=== PATIENT | female | born 1985 | race Caucasian/White ===

== ENCOUNTER → 2019-01-21 | Outpatient (CLI) | payer MEDICAID ==
[~2019-01-21] MED LIST: DIPH1TAB45 PO; ONDAN4ODT PO; PNT40TEC PO; SULF1TAB38 PO
--- NOTE | 2019-01-21 12:51 | Diagnostic Imaging Report ---
Indication: Left foot pain. Comparison: None available. Technique: 3 nonweightbearing views of the left foot were obtained. Findings: Normal osseous mineralization. No fracture or erosion. Joint spaces are well preserved. No plantar calcaneal spur. Tiny dorsal calcaneal spur. Os trigonum is present. No osseous tarsal coalition. Impression: Tiny dorsal calcaneal spur. Dictated by: Dictated on workstation # [id number]
--- NOTE | 2019-01-21 12:51 | Diagnostic Imaging Report ---
INDICATION: Left hip pain. COMPARISON: None available. TECHNIQUE: AP and frog-leg lateral views of the left hip. FINDINGS: No acute fracture or malalignment. Normal femoral head-neck offset. Potential mild acetabular retroversion which can be seen with pincer-type femoroacetabular impingement. Femoral head remains spherical without features of osteonecrosis by radiography. An IUD is present in the pelvis. IMPRESSION: 1. No acute osseous abnormality of the left hip. 2. 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 Dictated by: Dictated on workstation # [id number]
== END ==
LOC: RAD FS 12:08
PROVIDERS: ATTEND Nurse Practitioner Family
DX: M25.552 Pain in left hip (principal); M79.672 Pain in left foot; Z97.5 Presence of (intrauterine) contraceptive device
CPT/HCPCS: 73502; 73630

== ENCOUNTER 2019-05-08 17:39 | Emergency (ER) | payer MEDICAID | END 2019-05-08 20:10 | disposition home or self-care (01) | LOC: ER FS 17:39 ==

== ENCOUNTER 2019-06-15 17:04 | Emergency (ER) | payer MEDICAID ==
[~2019-06-15] VITALS: Ht 162.6 cm; Wt 86.2 kg
[~2019-06-15 17:04] MED LIST changes: +LEVO100T7
--- NOTE | 2019-06-15 17:24 | ED Fall/Injury ---
General Stated Complaint: RT ARM PAIN - FALL Source: patient Exam Limitations: no limitations History of Present Illness Date Seen by Provider: Jun 15, 2019 Time Seen by Provider: 17:08 Initial Comments The patient presents to ER by private conveyance from home with chief complaint that she fell down a couple stairs onto her bottom and slid forward bracing herself with both of her arms against the stairs last night. She did not strike her head lose consciousness have any nausea or headache. She is just having some pain and swelling in her right forearm on the ulnar side mid shaft. She has full range of motion of her hands and elbow. She is having a little burning pain in her right pinky. Allergies and Home Medications Allergies Coded Allergies: Acetaminophen (Verified Allergy, 08/05/11) oxycodone HCl (Verified Allergy, 08/05/11) Patient Home Medication List Home Medication List Reviewed: Yes Review of Systems Review of Systems Constitutional: No chills, No diaphoresis Eyes: Denies Blindness, Denies Blurred Vision Ears, Nose, Mouth, Throat: denies ear pain, denies ear discharge Respiratory: No cough, No short of breath Cardiovascular: No chest pain, No edema Past Kldhrkp-Fnwjtc-Wicflx Hx Patient Social History Alcohol Use: Occasionally Uses Recreational Drug Use: No Smoking Status: Current Everyday Smoker Type Used: Cigarettes Recent Hopitalizations: No Immunizations Up To Date Date of Influenza Vaccine: Aug 22, 2011 Past Medical History Surgeries: Yes Adenoidectomy Respiratory: No Cardiac: No Neurological: No Genitourinary: No Gastrointestinal: No Musculoskeletal: No Endocrine: Yes Hypothyroidsim HEENT: No Cancer: No Psychosocial: No Integumentary: No Physical Exam Vital Signs Vital Signs - First Documented 06/15/19 17:32 Temp 98.2 Pulse 78 Resp 16 B/P (MAP) 135/82 (99) Pulse Ox 99 Capillary Refill : Height, Weight, BMI Height: 5'4.00" Weight: 180lbs. oz. 81.170210dw; BMI Method:Stated General Appearance: WD/WN, no apparent distress HEENT: PERRL/EOMI, pharynx normal, other (atraumatic head) Neck: full range of motion, normal inspection Cardiovascular: normal peripheral pulses, no edema Respiratory: no respiratory distress, no accessory muscle use Peripheral Pulses: 2+ Radial Pulses (R) (ulnar pulse palpable and symmetric with radial), 2+ Radial Pulses (L) Extremities: normal range of motion, normal capillary refill, other (ulnar side of her right forearm mid shaft has a modest size 4-5 cm long hematoma without obvious deformity. She has full range of motion pronation and supination.) Neurologic/Psychiatric: no motor/sensory deficits, alert, normal mood/affect Progress/Results/Core Measures Results/Orders My Orders Orders - NEDA AUSTIN Forearm 2 View Right (06/15/19 17:15) Vital Signs/I&O 06/15/19 17:32 Temp 98.2 Pulse 78 Resp 16 B/P (MAP) 135/82 (99) Pulse Ox 99 Progress Progress Note : Time: 17:21 Progress Note I suspect she is either struck her ulnar nerve at the level of the hematoma or the hematoma is causing direct compression of the ulnar nerve and that explains her burning sensation in her pinky. Unlikely there is a fracture however a simple x-ray can rule it out given the hematoma. Conservative care, Tylenol, ibuprofen and ice pack. Diagnostic Imaging Diagonstic Imaging: Xray Plain Films/CT/US/NM/MRI: forearm Comments No acute osseous abnormality. NAME: ABDOUL DOMINGUEZ [facility] REC#: [id number] PT STATUS: REG ER : 1985 PHYSICIAN: NEDA AUSTIN MD ADMIT DATE: 06/15/19/ER FS Draft Date of Exam:06/15/19 FOREARM 2 VIEW RIGHT INDICATION: Fell, elbow pain. EXAMINATION: Right forearm at 5:04 p.m. AP and lateral views were obtained. COMPARISON: There are no prior studies available for comparison. FINDINGS: There is no fracture, dislocation or acute bony abnormality evident. The radiocarpal and elbow joint seem well maintained. The posterior fat-pad at the elbow joint is not elevated. The soft tissues are unremarkable. IMPRESSION: There is no evidence for an acute bony abnormality. Dictated on workstation # [id number] Dict: 06/15/[id number] Trans: 06/15/19 175 [facility] [id number] Interpreted by: OSCAR BOOKER MD Electronically signed by: Reviewed: Reviewed by Me Departure Impression Primary Impression: Fall Qualified Codes: W19.XXXA - Unspecified fall, initial encounter Additional Impression: Traumatic hematoma of right forearm Qualified Codes: S50.11XA - Contusion of right forearm, initial encounter Disposition: 01 HOME, SELF-CARE Condition: Stable Departure-Patient Inst. Decision time for Depature: 17:57 Referrals: [facility] (PCP) Primary Care Physician JOY AGUIRRE APRN (Family) Primary Care Physician Patient Instructions: HEMATOMA Add. Discharge Instructions: For the first 2 or 3 days apply an ice pack directly over the hematoma every 4 hours. 800 mg of Ibuprofen every 8 hours will help decrease the swelling as well as elevation above the level of your heart. Tylenol 1000 mg every 8 hours as needed for breakthrough pain. Sensation to your pinky finger should return as the swelling goes down unless use incidentally injured the nerve in which case usually it will heal within a month or 2. Follow-up with primary care if you have worsening symptoms. NEDA AUSTIN Jun 15, 2019 17:24
--- NOTE | 2019-06-15 17:54 | Diagnostic Imaging Report ---
INDICATION: Fell, elbow pain. EXAMINATION: Right forearm at 5:04 p.m. AP and lateral views were obtained. COMPARISON: There are no prior studies available for comparison. FINDINGS: There is no fracture, dislocation or acute bony abnormality evident. The radiocarpal and elbow joint seem well maintained. The posterior fat-pad at the elbow joint is not elevated. The soft tissues are unremarkable. IMPRESSION: There is no evidence for an acute bony abnormality. Dictated by: Dictated on workstation # [id number]
[2019-06-15 18:00] VITALS: BP 135/82
== END 2019-06-15 18:02 | disposition home or self-care (01) ==
LOC: EDUNIT# 17:04 → ER FS 17:05
DX: S50.11XA Contusion of right forearm, initial encounter (principal); E03.9 Hypothyroidism, unspecified; F17.210 Nicotine dependence, cigarettes, uncomplicated; Z88.5 Allergy status to narcotic agent; W10.9XXA Fall (on) (from) unspecified stairs and steps, initial encounter
CPT/HCPCS: 73090

== ENCOUNTER 2020-05-17 09:13 | Emergency (ER) | payer MEDICAID ==
--- OUTSIDE RECORDS SUMMARY | 2020-05-17 09:38 | XMS REPORT | Continuity of Care Document ---
Author Organization Unknown Address Unknown Phone Unavailable Allergies Active Description Code Type Severity Reaction Onset Reported/Identified Relationship to Patient Clinical Status Yes acetaminophen [id number] Alvaro g Allergy Unknown N/A 08/05/2011 Yes oxycodone HCl [id number] Alvaro g Allergy Unknown N/A 08/05/2011 Medications There is no data. Problems Date Dx Coded Attending Type Code Diagnosis Diagnosed By 05/02/2018 Peter Decker MD N2 0.0 Kidney stone 05/03/2018 Peter Decker MD N2 0.1 Distal ureteral calculus, left 01/22/2019 JOY AGUIRRE S MANAGER NUCLEAR Ot M25.552 PAIN IN LEFT HIP 01/22/2019 TIMOTHY JOY S MANAGER NUCLEAR Ot M79.672 PAIN IN LEFT FOOT 01/22/2019 TIMOTHY JOY S MANAGER NUCLEAR Ot Z97.5 PRESENCE OF (INTRAUTERINE) CONTRACEPTIVE 01/22/2019 TIMOTHY, JOY S MANAGER NUCLEAR Ot M25.552 PAIN IN LEFT HIP 01/22/2019 TIMOTHY, JOY S MANAGER NUCLEAR Ot M79.672 PAIN IN LEFT FOOT 01/22/2019 TIMOTHY, JOY S MANAGER NUCLEAR Ot Z97.5 PRESENCE OF (INTRAUTERINE) CONTRACEPTIVE 01/23/2019 TIMOTHY JOY S MANAGER NUCLEAR Ot M25.552 PAIN IN LEFT HIP 01/23/2019 TIMOTHY JOY S MANAGER NUCLEAR Ot M79.672 PAIN IN LEFT FOOT 01/23/2019 TIMOTHY JOY S MANAGER NUCLEAR Ot Z97.5 PRESENCE OF (INTRAUTERINE) CONTRACEPTIVE 05/08/2019 TIMOTHY JOY S MANAGER NUCLEAR Ot M25.552 PAIN IN LEFT HIP 05/08/2019 TIMOTHY, JOY S MANAGER NUCLEAR Ot M79.672 PAIN IN LEFT FOOT 05/08/2019 TIMOTHY JOY S MANAGER NUCLEAR Ot Z97.5 PRESENCE OF (INTRAUTERINE) CONTRACEPTIVE 05/14/2019 ITZEL RUSHING DO Ot E03. 9 HYPOTHYROIDISM, UNSPECIFIED 05/14/2019 ITZEL RUSHING DO Ot F17.200 NICOTINE DEPENDENCE, UNSPECIFIED, UNCOMP 05/14/2019 ITZEL RUSHING DO Ot R53. 83 OTHER FATIGUE 05/14/2019 ITZEL RUSHING DO Ot Z88. 5 ALLERGY STATUS TO NARCOTIC AGENT STATUS 06/18/2019 NEDA AUSTIN MD Ot E03. 9 HYPOTHYROIDISM, UNSPECIFIED 06/18/2019 NEDA AUSTIN MD Ot F17.210 NICOTINE DEPENDENCE, CIGARETTES, UNCOMPL 06/18/2019 NEDA AUSTIN MD Ot S50.11XA CONTUSION OF RIGHT FOREARM, INITIAL ENCO 06/18/2019 NEDA AUSTIN MD Ot S59.911A UNSPECIFIED INJURY OF RIGHT FOREARM, INI 06/18/2019 NEDA AUSTIN MD Ot W10.9XXA FALL (ON) (FROM) UNSPECIFIED STAIRS AND 06/18/2019 NEDA AUSTIN MD Ot Z88. 5 ALLERGY STATUS TO NARCOTIC AGENT STATUS Procedures There is no data. Results Test Result Range TSH w/ FREE T4 - 12/19/18 12:30 TSH 2.36 mIU/L NRG T4, FREE 1.1 ng/dL 0.8-1.8 TSH - 01/29/19 15:00 TSH 1.51 mIU/L NRG T4 FREE - 04/02/19 11:07 T4, FREE 1.1 ng/dL 0.8-1.8 TSH - 04/02/19 11:07 TSH 1.12 mIU/L NRG CBC w/MANUAL DIFF - 04/03/19 15:26 WHITE BLOOD CELL COUNT 6.3 Thousand/uL 3 .8-10.8 RED BLOOD CELL COUNT 4.41 Million/uL 3.8 0-5.10 HEMOGLOBIN 12.6 g/dL 11.7-15.5 HEMATOCRIT 38.6 % 35.0-45.0 MCV 87.5 fL 80.0-100.0 MCH 28.6 pg 27.0-33.0 MCHC 32.6 g/dL 32.0-36.0 RDW 15.0 % 11.0-15.0 PLATELET COUNT 252 Thousand/uL 140-400 MPV 10.6 fL 7.5-12.5 ABSOLUTE NEUTROPHILS 5015 cells/uL 1500- 7800 ABSOLUTE MONOCYTES 63 cells/uL 200-950 ABSOLUTE EOSINOPHILS 0 cells/uL 15-500 ABSOLUTE BASOPHILS 63 cells/uL 0-200 NEUTROPHILS 79.6 % NRG LYMPHOCYTES 18.4 % NRG MONOCYTES 1.0 % NRG EOSINOPHILS 0 % NRG BASOPHILS 1.0 % NRG ABSOLUTE LYMPHOCYTES 1159 cells/uL 850-3 900 PLATELET ESTIMATION ADEQUATE ADEQUATE COMMENT(S) NRG Complete blood count (CBC) with automate d white blood cell (WBC) differential - 05/08/19 18:19 Blood leukocytes automated count (number/volume) 8.4 10*3/uL 4.3-11.0 Blood erythrocytes automated count (number/volume) 4.21 10*6/uL 4.35-5.85 Venous blood hemoglobin measurement (mass/volume) 12.2 g/dL 11.5-16.0 Blood hematocrit (volume fraction) 37 % 35-52 Automated erythrocyte mean corpuscular volume 88 [ foz_us] 80-99 Automated erythrocyte mean corpuscular h emoglobin (mass per erythrocyte) 29 pg 25-34 Automated erythrocyte mean corpuscular h emoglobin concentration measurement (mass/volume) 33 g/dL 32-36 Automated erythrocyte distribution width ratio 15. 3 % 10.0- 14.5 Automated blood platelet count (count/volume) 217 10*3/uL 130-400 Automated blood platelet mean volume measurement 10.8 [foz_us] 7.4-10.4 Automated blood neutrophils/100 leukocytes 78 % 42-75 Automated blood lymphocytes/100 leukocytes 14 % 12-44 Blood monocytes/100 leukocytes 7 % 0-12 Automated blood eosinophils/100 leukocytes 1 % 0-10 Automated blood basophils/100 leukocytes 1 % 0-10 Blood neutrophils automated count (number/volume) 6.5 10*3 1.8-7.8 Blood lymphocytes automated count (number/volume) 1.2 10*3 1.0-4.0 Blood monocytes automated count (number/volume) 0. 6 10*3 0.0-1.0 Automated eosinophil count 0.1 10*3/uL 0 .0-0.3 Automated blood basophil count (count/volume) 0.0 10*3/uL 0.0-0.1 Fibrin D-dimer FEU measurement in platel et poor plasma (mass/volume) - 05/08/19 18:19 Fibrin D-dimer FEU measurement in platelet poor plasma (mass/volume) 0.37 ug/mL 0.00-0.49 Comprehensive metabolic panel - 05/08/19 18:19 Serum or plasma sodium measurement (moles/volume) 140 mmol/L 135-145 Serum or plasma potassium measurement (moles/volume) 3.9 mmol/L 3.6-5.0 Serum or plasma chloride measurement (moles/volume) 104 mmol/L 98-107 Carbon dioxide 22 mmol/L 21-32 Serum or plasma anion gap determination (moles/volume) 14 mmol/L 5-14 Serum or plasma urea nitrogen measurement (mass/volume ) 16 mg/dL 7-18 Serum or plasma creatinine measurement (mass/volume) 0.72 mg/dL 0.60-1.30 Serum or plasma urea nitrogen/creatinine mass ratio 22 NRG Serum or plasma creatinine measurement w ith calculation of estimated glomerular filtration rate > NRG Serum or plasma glucose measurement (mass/volume) 104 mg/dL 70-105 Serum or plasma calcium measurement (mass/volume) 9.7 mg/dL 8.5-10.1 Serum or plasma total bilirubin measurement (mass/volu me) 0.2 mg/dL 0.1-1.0 Serum or plasma alkaline phosphatase reggie surement (enzymatic activity/volume) 70 U/L 40-136 Serum or plasma aspartate aminotransfera se measurement (enzymatic activity/volume) 14 U/L 5-34 Serum or plasma alanine aminotransferase measurement (enzymatic activity/volume) 16 U/L 0-55 Serum or plasma protein measurement (mass/volume) 7.1 g/dL 6.4-8.2 Serum or plasma albumin measurement (mass/volume) 4.1 g/dL 3.2-4.5 CALCIUM CORRECTED 9.6 mg/dL 8.5-10.1 Magnesium - 05/08/19 18:19 Magnesium 1.9 mg/dL 1.8-2.4 THYROID STIMULATING HORMONE - 05/08/19 1 8:19 THYROID STIMULATING HORMONE 0.57 u[iU]/mL 0.35-4.94 Serum or plasma thyroxine (T4) free robert urement (mass/volume) - 05/08/19 18:19 Serum or plasma thyroxine (T4) free measurement (mass/ volume) 0.96 ng/dL 0.70-1.48 Urine beta human chorionic gonadotropin (hCG) measurement - 05/08/19 19:04 Urine beta human chorionic gonadotropin (hCG) measurem ent NEGATIVE NEGATIVE Complete urinalysis with reflex to cultu re - 05/08/19 19:04 Urine color determination YELLOW NRG Urine clarity determination CLEAR NR G Urine pH measurement by test strip 7.0 5-9 Specific gravity of urine by test strip 10.15 1.016-1.022 Urine protein assay by test strip, semi-quantitative NEGATIVE NEGATIVE Urine glucose detection by automated test strip NE GATIVE NEGATIVE Erythrocytes detection in urine sediment by light micr oscopy NEGATIVE NEGATIVE Urine ketones detection by automated test strip NE GATIVE NEGATIVE Urine nitrite detection by test strip NEGATIVE NEGATIVE Urine total bilirubin detection by test strip NEGA TIVE NEGATIVE Urine urobilinogen measurement by automated test strip (mass/volume) 0.2 mg/dL NORMAL Urine leukocyte esterase detection by dipstick NEG ATIVE NEGATIVE Automated urine sediment erythrocyte cou nt by microscopy (number/high power field) NONE NRG Automated urine sediment leukocyte count by microscopy (number/high power field) RARE NRG Bacteria detection in urine sediment by light microsco py NEGATIVE NRG Squamous epithelial cells detection in u rine sediment by light microscopy 2-5 NRG Crystals detection in urine sediment by light microsco py PRESENT NRG Casts detection in urine sediment by light microscopy NONE NRG Mucus detection in urine sediment by light microscopy NONE NRG Complete urinalysis with reflex to culture NO NRG Amorphous sediment detection in urine sediment by ligh t microscopy FEW CARLTON PHOSPHATE NRG TSH w/ FREE T4 - 07/03/19 16:25 TSH 1.89 mIU/L NRG T4, FREE 1.0 ng/dL 0.8-1.8 CULTURE, URINE - 08/22/19 17:25 CULTURE, URINE, ROUTINE SEE NOTE NRG CULTURE, URINE - 11/25/19 10:18 CULTURE, URINE, ROUTINE SEE NOTE NRG TSH - 02/20/20 10:28 TSH 1.71 mIU/L NRG T4 FREE - 03/23/20 10:48 T4, FREE 1.0 ng/dL 0.8-1.8 T3 FREE - 03/23/20 10:48 T3, FREE 3.0 pg/mL 2.3-4.2 Encounters ACCT No. Visit Date/Time Discharge Status Pt. Type Provider Facility Loc./Unit Complaint [id number] 05/10/2018 10:48:00 ACT Unknown Peter Decker MD [id number] 11/05/2019 10:56:00 23:59:59 CLS Preadmit JOY AGUIRRE MANAGER NUCLEAR [facility] RAD SWALLOWING IMPAIRED [id number] 06/15/2019 17:05:00 18:02:00 DIS Outpatient NEDA AUSTIN MD [facility] ER FS RT ARM PAIN - FALL [id number] 05/08/2019 17:39:00 20:10:00 DIS Outpatient ITZEL RUSHING DO [facility] ER FS CHEST PAIN, ARMS AND LE GS NUMB, POSS HEAD INJ [id number] 01/21/2019 12:08:00 23:59:59 CLS Outpatient JOY AGUIRRE MANAGER NUCLEAR [facility] RAD FS [id number] 04/05/2020 15:00:00 04/05/2020 23:59: 59 CLS Outpatient JOY AGUIRRE [facility] [id number] 03/23/2020 10:45:00 Document Registration [id number] 02/20/2020 10:30:00 Document Registration [id number] 11/25/2019 09:45:00 Document Registration [id number] 08/22/2019 17:10:00 Document Registration [id number] 07/03/2019 16:00:00 Document Registration [id number] 04/03/2019 15:30:00 Document Registration [id number] 04/02/2019 11:15:00 Document Registration [id number] 01/29/2019 14:00:00 Document Registration [id number] 12/19/2018 12:30:00 Document Registration
[2020-05-17] MEDS ORDERED: KETOROLAC 60 MG/2 ML VIAL IM ONE (09:45)
--- NOTE | 2020-05-17 09:47 | ED Abdominal Pain ---
General Chief Complaint: Abdominal/GI Problems Stated Complaint: ABD PAIN Nursing Triage Note: Started having left sided flank pain and bilateral lower quadrant abdominal pain yesterday. Has worsened overnight. Has a hx of kidney stones Sepsis Screen: No Definite Risk Source of Information: Patient Exam Limitations: No Limitations History of Present Illness Date Seen by Provider: May 17, 2020 Time Seen by Provider: 09:35 Initial Comments Patient resents ER by private conveyance from home with chief complaint that since last night she started expressing some low abdominal pain bilaterally that started radiating to her left flank. She says the pain is consistent with her history of kidney stones. At worst it's an 8 out of 10 in presently to 4 out of 10. It comes and goes and it cramping like sharp colicky fashion. She has not taken anything for the pain today. She has not had any dysuria but she did have some blood in her urine yesterday evening. No diarrhea or constipation. She had a bowel movement earlier today which was normal. No other history of abdominal surgeries or trauma. Allergies and Home Medications Allergies Coded Allergies: Acetaminophen (Verified Allergy, 08/05/11) oxycodone HCl (Verified Allergy, 08/05/11) Patient Home Medication List Home Medication List Reviewed: Yes Review of Systems Review of Systems Constitutional: No chills, No diaphoresis EENTM: No Blurred Vision, No Double Vision Respiratory: Denies Cough, Denies Shortness of Air Cardiovascular: Denies Chest Pain, Denies Lightheadedness Gastrointestinal: See HPI, Abdominal Pain; Denies Constipated, Denies Diarrhea, Denies Nausea Genitourinary: Denies Burning, Denies Discharge Musculoskeletal: see HPI, back pain (left flank); No joint pain Skin: No pruritus, No rash Psychiatric/Neurological: Denies Anxiety, Denies Depressed All Other Systems Reviewed Negative Unless Noted: Yes Past Muygbci-Yxqppl-Bndjqu Hx Patient Social History Alcohol Use: Denies Use Recreational Drug Use: No Type Used: Cigarettes 2nd Hand Smoke Exposure: No Recent Foreign Travel: No Contact w/Someone Who Travel: No Recent Infectious Disease Expo: No Recent Hopitalizations: No Immunizations Up To Date Date of Influenza Vaccine: Aug 22, 2011 Past Medical History Surgeries: Yes Adenoidectomy Respiratory: No Cardiac: No Neurological: No Neuropathy Genitourinary: No Gastrointestinal: No Musculoskeletal: No Endocrine: Yes Hypothyroidsim HEENT: No Cancer: No Psychosocial: No Integumentary: No Physical Exam Vital Signs Vital Signs - First Documented 05/17/20 09:39 Pulse 92 Resp 20 B/P (MAP) 124/80 (95) Pulse Ox 98 Capillary Refill : Less Than 3 Seconds Height/Weight/BMI Height: 5'4.00" Weight: 190lbs. oz. 86.652295cj; BMI Method:Stated General Appearance: WD/WN, mild distress HEENT: PERRL/EOMI, pharynx normal Neck: full range of motion, normal inspection Respiratory: lungs clear, normal breath sounds, no respiratory distress, no accessory muscle use Cardiovascular: normal peripheral pulses, regular rate, rhythm Gastrointestinal: normal bowel sounds, non tender, soft Extremities: normal range of motion, non-tender, normal inspection, normal capillary refill Back: normal inspection, no CVA tenderness, no vertebral tenderness Neurologic/Psychiatric: alert, normal mood/affect Skin: normal color, warm/dry Progress/Results/Core Measures Results/Orders Lab Results Laboratory Tests Test 05/17/20 09:26 Range/Units Urine Color YELLOW Urine Clarity CLEAR Urine pH 5.5 5-9 Urine Specific [place] >1.030 1.016-1.022 Urine Protein NEGATIVE NEGATIVE Urine Glucose (UA) NEGATIVE NEGATIVE Urine Ketones NEGATIVE NEGATIVE Urine Nitrite NEGATIVE NEGATIVE Urine Bilirubin NEGATIVE NEGATIVE Urine Urobilinogen 0.2 < = 1.0 MG/DL Urine Leukocyte Esterase TRACE H NEGATIVE Urine RBC (Auto) NEGATIVE NEGATIVE Urine RBC NONE /HPF Urine WBC 0-2 /HPF Urine Squamous Epithelial Cells 5-10 /HPF Urine Crystals NONE /LPF Urine Bacteria TRACE /HPF Urine Casts NONE /LPF Urine Mucus TRACE /LPF Urine Culture Indicated NO My Orders Orders - NEDA AUSTIN Ua Culture If Indicated (05/17/20 09:15) Urine Bedside (05/17/20 09:15) Ct Abdomen/Pelvis Wo (05/17/20 09:43) Ketorolac Injection (Toradol Injection) (05/17/20 09:45) Medications Given in ED Current Medications Medications Dose Ordered Sig/Olga Route Start Time Stop Time Status Last Admin Dose Admin Ketorolac Tromethamine 60 mg ONCE ONCE IM 05/17/20 09:45 05/17/20 09:46 DC 05/17/20 09:57 60 MG Vital Signs/I&O 05/17/20 09:39 Pulse 92 Resp 20 B/P (MAP) 124/80 (95) Pulse Ox 98 Blood Pressure Mean: 95 Progress Progress Note : Time: 09:45 Progress Note Urine bedside was negative per nursing so we will obtain a CT noncontrast kidney stone protocol and give her a shot of Toradol. Diagnostic Imaging Diagonstic Imaging: CT (noncontrast) Plain Films/CT/US/NM/MRI: abdomen, pelvis Comments NAME: ABDOUL DOMINGUEZ [facility] REC#: [id number] PT STATUS: REG ER : 1985 PHYSICIAN: NEDA AUSTIN MD ADMIT DATE: 05/17/20/ER FS Draft Date of Exam:05/17/20 CT ABDOMEN/PELVIS WO PROCEDURE: CT abdomen and pelvis without contrast. TECHNIQUE: Multiple contiguous axial images were obtained through the abdomen and pelvis without the use of intravenous contrast. Auto Exposure Controls were utilized during the CT exam to meet ALARA standards for radiation dose reduction. INDICATION: Left-sided flank pain. History of nephrolithiasis. COMPARISON: 12/30/2011. FINDINGS: There are stones within upper and lower pole calyces of the left kidney. The largest stone in its upper pole measures 4 mm in diameter. There is some prominent fat within the bilateral renal sinuses; however, there is no hydroureteronephrosis and no perinephric or periureteric edema. No radiodense stone along the course of either ureter is found. The urinary bladder was not well distended but appears nonfocal. There is an IUD device within the lower uterine segment in unchanged alignment from the study of 2011. There has been resolution of the previous bilateral adnexal cysts. The appendix is air-containing and unremarkable. There is no diverticulitis. There is no bowel obstruction. The liver and bile ducts are normal. There are gallstones present without features of acute cholecystitis. The spleen, adrenals, and pancreas are negative. IMPRESSION: Left-sided nephrolithiasis with no radiodense ureteral stone or hydroureteronephrosis. Cholelithiasis without bile duct dilatation. Normal appendix. Low positioning of an IUD is unchanged from the comparison study which also shows resolution of the previous adnexal cysts. Dictated on workstation # [id number] Dict: 05/17/20 1019 Trans: 05/17/20 1031 [id number] Interpreted by: SANYA HERNANDEZ Electronically signed by: Reviewed: Reviewed by Me Departure Impression Primary Impression: Nephrolithiasis Disposition: HOME, SELF-CARE Condition: Stable Departure-Patient Inst. Decision time for Depature: 11:02 Referrals: [facility] [place] ([place]P) Primary Care Physician JOY AGUIRRE APRN (Family) Primary Care Physician SOLEDAD MENDOZA MD Patient Instructions: Kidney Stones in Adults Add. Discharge Instructions: You still have some left-sided kidney stone second pass. It's possible that you recently passed one and you may have pain for one to 2 days. You can follow-up with a urologist such as Dr. Mendoza discuss what can be done about kidney stones. Tylenol 1000 mg every 8 hours as necessary for pain. Ibuprofen 800 mg every 8 hours as necessary for pain. Drink plenty of fluids. Return to the ER if you have intractable pain or other worrisome features over the next couple days. All discharge instructions reviewed with patient and/or family. Voiced understanding. Work/School Note: Work Release Form Date Seen in the Emergency Department: May 17, 2020 Return to Work: May 18, 2020 Restrictions: No Restrictions Copy Copies To 1: SOLEDAD MENDOZA MD, TITUS J May 17, 2020 09:47
[2020-05-17 09:52] LABS: BACTERIA,URINE TRACE /HPF; BILIRUBIN,URINE NEGATIVE (NEGATIVE); CLARITY,URINE CLEAR; COLOR,URINE YELLOW; GLUCOSE, URINE (UA) NEGATIVE (NEGATIVE); KETONES,URINE NEGATIVE (NEGATIVE); LEUKOCYTE ESTERASE ,URINE TRACE (NEGATIVE); NITRITE,URINE NEGATIVE (NEGATIVE); PH,URINE 5.5 (5-9); PROTEIN,URINE NEGATIVE (NEGATIVE); WBC,URINE 0-2 /HPF
--- NOTE | 2020-05-17 10:31 | Diagnostic Imaging Report ---
PROCEDURE: CT abdomen and pelvis without contrast. TECHNIQUE: Multiple contiguous axial images were obtained through the abdomen and pelvis without the use of intravenous contrast. Auto Exposure Controls were utilized during the CT exam to meet ALARA standards for radiation dose reduction. INDICATION: Left-sided flank pain. History of nephrolithiasis. COMPARISON: 12/30/2011. FINDINGS: There are stones within upper and lower pole calyces of the left kidney. The largest stone in its upper pole measures 4 mm in diameter. There is some prominent fat within the bilateral renal sinuses; however, there is no hydroureteronephrosis and no perinephric or periureteric edema. No radiodense stone along the course of either ureter is found. The urinary bladder was not well distended but appears nonfocal. There is an IUD device within the lower uterine segment in unchanged alignment from the study of 2011. There has been resolution of the previous bilateral adnexal cysts. The appendix is air-containing and unremarkable. There is no diverticulitis. There is no bowel obstruction. The liver and bile ducts are normal. There are gallstones present without features of acute cholecystitis. The spleen, adrenals, and pancreas are negative. IMPRESSION: Left-sided nephrolithiasis with no radiodense ureteral stone or hydroureteronephrosis. Cholelithiasis without bile duct dilatation. Normal appendix. Low positioning of an IUD is unchanged from the comparison study which also shows resolution of the previous adnexal cysts. Dictated by: Dictated on workstation # [id number]
[2020-05-17 11:15] VITALS: BP 108/71
[2020-05-18] MEDS ORDERED: DICY20TA10 PO (02:35)
[2020-05-18] MEDS ORDERED: CEPH-507 PO (02:35)
== END 2020-05-17 11:16 | disposition home or self-care (01) ==
LOC: EDUNIT# 09:13 → ER FS 09:15
DX: N20.0 Calculus of kidney (principal); Z88.6 Allergy status to analgesic agent; Z88.5 Allergy status to narcotic agent
CPT/HCPCS: 74176; 81000; 84703

== ENCOUNTER 2020-05-18 01:19 | Emergency (ER) | payer MEDICAID ==
[~2020-05-18] VITALS: Ht 162.5 cm; Wt 86.1 kg
--- OUTSIDE RECORDS SUMMARY | 2020-05-18 01:25 | XMS REPORT | Continuity of Care Document ---
Author Organization Unknown Address Unknown Phone Unavailable Allergies Active Description Code Type Severity Reaction Onset Reported/Identified Relationship to Patient Clinical Status Yes acetaminophen [id number] Alvaro g Allergy Unknown N/A 08/05/2011 Yes oxycodone HCl [id number] Alvaro g Allergy Unknown N/A 08/05/2011 Medications There is no data. Problems Date Dx Coded Attending Type Code Diagnosis Diagnosed By 05/02/2018 Peter Decker MD N2 0.0 Kidney stone 05/03/2018 Peter Decker MD N2 0.1 Distal ureteral calculus, left 01/22/2019 JOY AGUIRRE [employer] Ot M25.552 PAIN IN LEFT HIP 01/22/2019 JOY AGUIRRE [employer] Ot M79.672 PAIN IN LEFT FOOT 01/22/2019 TIMOTHY JOY S [employer] Ot Z97.5 PRESENCE OF (INTRAUTERINE) CONTRACEPTIVE 01/22/2019 TIMOTHY JOY S [employer] Ot M25.552 PAIN IN LEFT HIP 01/22/2019 TIMOTHY JOY S [employer] Ot M79.672 PAIN IN LEFT FOOT 01/22/2019 TIMOTHY JOY S [employer] Ot Z97.5 PRESENCE OF (INTRAUTERINE) CONTRACEPTIVE 01/23/2019 JOY AGUIRRE S [employer] Ot M25.552 PAIN IN LEFT HIP 01/23/2019 TIMOTHY JOY S [employer] Ot M79.672 PAIN IN LEFT FOOT 01/23/2019 TIMOTHY JOY S [employer] Ot Z97.5 PRESENCE OF (INTRAUTERINE) CONTRACEPTIVE 05/08/2019 ITZEL RUSHING DO Ot E03. 9 HYPOTHYROIDISM, UNSPECIFIED 05/08/2019 ITZEL RUSHING DO Ot F17.200 NICOTINE DEPENDENCE, UNSPECIFIED, UNCOMP 05/08/2019 ITZEL RUSHING DO Ot R53. 83 OTHER FATIGUE 05/08/2019 ITZEL RUSHING DO Ot Z88. 5 ALLERGY STATUS TO NARCOTIC AGENT STATUS 05/08/2019 JOY AGUIRRE [employer] Ot M25.552 PAIN IN LEFT HIP 05/08/2019 TIMOTHYJOY Nava S [employer] Ot M79.672 PAIN IN LEFT FOOT 05/08/2019 TIMOTHY, JOY S [employer] Ot Z97.5 PRESENCE OF (INTRAUTERINE) CONTRACEPTIVE 05/14/2019 ITZEL RUSHING DO B Ot E03. 9 HYPOTHYROIDISM, UNSPECIFIED 05/14/2019 ITZEL RUSHING DO B Ot F17.200 NICOTINE DEPENDENCE, UNSPECIFIED, UNCOMP 05/14/2019 ITZEL RUSHING DO B Ot R53. 83 OTHER FATIGUE 05/14/2019 ITZEL RUSHING DO Ot Z88. 5 ALLERGY STATUS TO NARCOTIC AGENT STATUS 06/15/2019 NEDA AUSTIN MD Ot E03. 9 HYPOTHYROIDISM, UNSPECIFIED 06/15/2019 NEDA AUSTIN MD Ot F17.210 NICOTINE DEPENDENCE, CIGARETTES, UNCOMPL 06/15/2019 NEDA AUSTIN MD Ot S50.11XA CONTUSION OF RIGHT FOREARM, INITIAL ENCO 06/15/2019 NEDA AUSTIN MD Ot S59.911A UNSPECIFIED INJURY OF RIGHT FOREARM, INI 06/15/2019 NEDA AUSTIN MD Ot W10.9XXA FALL (ON) (FROM) UNSPECIFIED STAIRS AND 06/15/2019 NEDA AUSTIN MD Ot Z88. 5 ALLERGY [...] 5 ALLERGY STATUS TO NARCOTIC AGENT STATUS 05/17/2020 TIMOTHY JOY Suazo [employer] Ot M25.552 PAIN IN LEFT HIP 05/17/2020 TIMOTHY JOY S [employer] ASSEM[employer] Ot M79.672 PAIN IN LEFT FOOT 05/17/2020 JOY AGUIRRE [employer] Ot Z97.5 PRESENCE OF (INTRAUTERINE) CONTRACEPTIVE 05/17/2020 Peter Decker MD E6 6.9 Obesity Class I (BMI 30-34.9) 05/17/2020 Peter Decker MD Z68.32 BMI 32-32.9 Procedures There is no data. Results Test [...] 03/23/20 10:48 T3, FREE 3.0 pg/mL 2.3-4.2 Complete urinalysis with reflex to cultu re - 05/17/20 09:26 Urine color determination YELLOW NRG Urine clarity determination CLEAR NR G Urine pH measurement by test strip 5.5 5-9 Specific gravity of urine by test strip > 1.016-1.022 Urine protein assay by test strip, [...] by automated test strip (mass/volume) 0.2 mg/dL < = 1.0 Urine leukocyte esterase detection by dipstick TRA CE NEGATIVE Automated urine sediment erythrocyte cou nt by microscopy (number/high power field) NONE NRG Automated urine sediment leukocyte count by microscopy (number/high power field) [HPF] NRG Bacteria detection in urine sediment by light microsco py TRACE NRG Squamous epithelial cells detection in u rine sediment by light microscopy 5-10 NRG Crystals detection in urine sediment by light microsco py NONE NRG Casts detection in urine sediment by light microscopy NONE NRG Mucus detection in urine sediment by light microscopy TRACE NRG Complete urinalysis with reflex to culture NO NRG Encounters ACCT No. Visit Date/Time Discharge Status Pt. Type Provider Facility Loc./Unit Complaint [id number] 05/10/2018 10:48:00 ACT Unknown Peter Decker MD [id number] 05/17/2020 09:15:00 11:16:00 DIS Emergency NEDA AUSTIN MD [facility] ER FS ABD PAIN [id number] 11/05/2019 10:56:00 23:59:59 CLS Preadmit JOY AGUIRRE [employer] [facility] RAD SWALLOWING IMPAIRED [id number] 06/15/2019 17:05:00 18:02:00 DIS Emergency NEDA AUSTIN MD [facility] ER FS RT ARM PAIN - FALL [id number] 05/08/2019 17:39:00 20:10:00 DIS Emergency ITZEL RUSHING DO [facility] ER FS CHEST PAIN, ARMS AND LE GS NUMB, POSS HEAD INJ [id number] 01/21/2019 12:08:00 23:59:59 CLS Outpatient JOY AGUIRRE [employer] [facility] RAD FS M79.672 [id number] 04/05/2020 15:00:00 04/05/2020 23:59: 59 CLS Outpatient JOY AGUIRRE [facility] [id number] 03/23/2020 10:45:00 Document Registration [id number] 02/20/2020 10:30:00 Document Registration [id number] 11/25/2019 09:45:00 Document Registration [id number] 08/22/2019 17:10:00 Document Registration [id number] 07/03/2019 16:00:00 Document Registration [id number] 04/03/2019 15:30:00 Document Registration [id number] 04/02/2019 11:15:00 Document Registration [id number] 01/29/2019 14:00:00 Document Registration [id number] 12/19/2018 12:30:00 Document Registration
[2020-05-18] MEDS ORDERED: NS IV 1000 ML 1,000 ML IV STA (01:26)
[2020-05-18] MEDS ORDERED: ONDANSETRON 4 MG/2 ML (SDV) Z0FRAN IVP ONE (01:30)
[2020-05-18] MEDS ORDERED: KETOROLAC 60 MG/2 ML VIAL IV ONE (01:30)
--- NOTE | 2020-05-18 01:31 | ED Abdominal Pain ---
General Chief Complaint: Abdominal/GI Problems Stated Complaint: ABD PAIN Source of Information: Patient, Old Records, RN/MD Exam Limitations: No Limitations History of Present Illness Date Seen by Provider: May 18, 2020 Time Seen by Provider: 01:20 Initial Comments This patient is a 35-year-old female presents to the emergency department complaining of mid lower abdominal pain. Patient was seen yesterday within the past 24 hours complaining of abdominal pain and flank pain was found to have a kidney stone in the left kidney and had gallstones but no cholelithiasis or cholecystitis. Basically an unremarkable exam. Patient presents back complaining of abdominal pain patient states she's also had some abdominal cramping and diarrhea over the past 24 hours. Patient denies nausea and vomiting. We'll do medical evaluation treatment is needed Timing/Duration: 1-2 Days Severity/Quality: Moderate Location: Periumbilical Radiation: No Radiation Activities at Onset: None Allergies and Home Medications Allergies Coded Allergies: Acetaminophen (Verified Allergy, 08/05/11) oxycodone HCl (Verified Allergy, 08/05/11) Patient Home Medication List Home Medication List Reviewed: Yes Review of Systems Review of Systems Constitutional: No no symptoms reported; see HPI; No chills, No diaphoresis, No dizziness, No fever, No malaise, No weakness, No weight gain, No weight loss, No other EENTM: No No Symptoms Reported, No See HPI, No Blurred Vision, No Double Vision, No Eye Pain, No Eye Tearing, No Ear Drainage, No Ear Pain, No Mouth Pain, No Mouth Swelling, No Nose Congestion, No Nose Pain, No Throat Pain, No Throat Swelling, No Other Respiratory: Denies No Symptoms Reported, Denies See HPI, Denies Cough, Denies Orthopnea, Denies Shortness of Air, Denies SOA With Exertion, Denies SOA at Rest, Denies Stridor, Denies Wheezing, Denies Other Cardiovascular: Denies No Symptoms Reported, Denies See HPI, Denies Chest Pain, Denies Edema, Denies Irregular Heart Rate, Denies Lightheadedness, Denies Palpitations, Denies Syncope, Denies Other Gastrointestinal: Denies No Symptoms Reported; See HPI; Denies Abdomen Distended; Abdominal Pain; Denies Blood Streaked Stools, Denies Constipated; Diarrhea; Denies Difficulty Swallowing, Denies Nausea, Denies Poor Appetite, Denies Poor Fluid Intake, Denies Rectal Bleeding, Denies Vomiting, Denies Other Genitourinary: Denies No Symptoms Reported, Denies See HPI, Denies Burning, Denies Discharge, Denies Drainage, Denies Frequency, Denies Flank Pain, Denies Hematuria, Denies Incontinence, Denies Pain, Denies Urgency, Denies Other Musculoskeletal: No no symptoms reported, No see HPI, No back pain, No gout, No joint pain, No joint swelling, No muscle pain, No muscle stiffness, No muscle cramps, No muscle twitching, No muscle weakness, No neck pain, No other All Other Systems Reviewed Negative Unless Noted: Yes Past Podjmhj-Jyhumb-Akkdcv Hx Patient Social History Type Used: Cigarettes 2nd Hand Smoke Exposure: No Recent Foreign Travel: No Contact w/Someone Who Travel: No Recent Hopitalizations: No Immunizations Up To Date Date of Influenza Vaccine: Aug 22, 2011 Past Medical History Surgeries: Yes Adenoidectomy Respiratory: No Cardiac: No Neurological: No Neuropathy Genitourinary: No Gastrointestinal: No Musculoskeletal: No Endocrine: Yes Hypothyroidsim HEENT: No Cancer: No Psychosocial: No Integumentary: No Physical Exam Vital Signs Vital Signs - First Documented 05/18/20 01:25 Temp 37.4 Pulse 119 Resp 24 B/P (MAP) 128/70 (89) Pulse Ox 98 O2 Delivery Room Air Capillary Refill : Height/Weight/BMI Height: 5'4.00" Weight: 190lbs. oz. 86.385813am; BMI Method:Stated General Appearance: WD/WN, no apparent distress Respiratory: chest non-tender, lungs clear, normal breath sounds, no respiratory distress, no accessory muscle use Cardiovascular: normal peripheral pulses, regular rate, rhythm, no edema, no gallop, no JVD, no murmur Gastrointestinal: normal bowel sounds, non tender, soft, no organomegaly, no pulsatile mass Extremities: normal range of motion, non-tender, normal inspection, no pedal edema, no calf tenderness, normal capillary refill, pelvis stable Back: normal inspection, no CVA tenderness, no vertebral tenderness Skin: normal color, warm/dry Progress/Results/Core Measures Results/Orders Lab Results Laboratory Tests Test 05/18/20 01:37 05/18/20 02:02 Range/Units White Blood Count 7.3 4.3-11.0 10^3/uL Red Blood Count 4.08 L 4.35-5.85 10^6/uL Hemoglobin 11.9 11.5-16.0 G/DL Hematocrit 36 35-52 % Mean Corpuscular Volume 89 80-99 FL Mean Corpuscular Hemoglobin 29 25-34 PG Mean Corpuscular Hemoglobin Concent 33 32-36 G/DL Red Cell Distribution Width 14.7 H 10.0-14.5 % Platelet Count 210 130-400 10^3/uL Mean Platelet Volume 11.1 H 7.4-10.4 FL Neutrophils (%) (Auto) 86 H 42-75 % Lymphocytes (%) (Auto) 6 L 12-44 % Monocytes (%) (Auto) 7 0-12 % Eosinophils (%) (Auto) 0 0-10 % Basophils (%) (Auto) 0 0-10 % Neutrophils # (Auto) 6.2 1.8-7.8 X 10^3 Lymphocytes # (Auto) 0.5 L 1.0-4.0 X 10^3 Monocytes # (Auto) 0.5 0.0-1.0 X 10^3 Eosinophils # (Auto) 0.0 0.0-0.3 10^3/uL Basophils # (Auto) 0.0 0.0-0.1 10^3/uL Neutrophils % (Manual) 55 % Lymphocytes % (Manual) 5 % Monocytes % (Manual) 2 % Eosinophils % (Manual) 0 % Basophils % (Manual) 0 % Metamyelocytes % 1 % Myelocytes % 2 % Band Neutrophils 35 % Sodium Level 133 L 135-145 MMOL/L Potassium Level 3.8 3.6-5.0 MMOL/L Chloride Level 102 98-107 MMOL/L Carbon Dioxide Level 19 L 21-32 MMOL/L Anion Gap 12 5-14 MMOL/L Blood Urea Nitrogen 12 7-18 MG/DL Creatinine 0.89 0.60-1.30 MG/DL Estimat Glomerular Filtration Rate > 60 BUN/Creatinine Ratio 13 Glucose Level 129 H 70-105 MG/DL Calcium Level 9.4 8.5-10.1 MG/DL Corrected Calcium 9.2 8.5-10.1 MG/DL Total Bilirubin 0.2 0.1-1.0 MG/DL Aspartate Amino Transf (AST/SGOT) 12 5-34 U/L Alanine Aminotransferase (ALT/SGPT) 13 0-55 U/L Alkaline Phosphatase 74 40-136 U/L Total Protein 7.0 6.4-8.2 GM/DL Albumin 4.2 3.2-4.5 GM/DL Lipase 18 8-78 U/L Urine Color YELLOW Urine Clarity SLT CLOUDY Urine pH 6.0 5-9 Urine Specific [place] 1.010 L 1.016-1.022 Urine Protein NEGATIVE NEGATIVE Urine Glucose (UA) NEGATIVE NEGATIVE Urine Ketones NEGATIVE NEGATIVE Urine Nitrite NEGATIVE NEGATIVE Urine Bilirubin NEGATIVE NEGATIVE Urine Urobilinogen 0.2 < = 1.0 MG/DL Urine Leukocyte Esterase 1+ H NEGATIVE Urine RBC (Auto) NEGATIVE NEGATIVE Urine RBC NONE /HPF Urine WBC 10-25 H /HPF Urine Squamous Epithelial Cells 10-25 H /HPF Urine Crystals NONE /LPF Urine Bacteria NEGATIVE /HPF Urine Casts NONE /LPF Urine Mucus SMALL H /LPF Urine Culture Indicated YES Urine Opiates Screen POSITIVE H NEGATIVE Urine Oxycodone Screen NEGATIVE NEGATIVE Urine Methadone Screen NEGATIVE NEGATIVE Urine Propoxyphene Screen NEGATIVE NEGATIVE Urine Barbiturates Screen NEGATIVE NEGATIVE Ur Tricyclic Antidepressants Screen NEGATIVE NEGATIVE Urine Phencyclidine Screen NEGATIVE NEGATIVE Urine Amphetamines Screen NEGATIVE NEGATIVE Urine Methamphetamines Screen NEGATIVE NEGATIVE Urine Benzodiazepines Screen NEGATIVE NEGATIVE Urine Cocaine Screen NEGATIVE NEGATIVE Urine Cannabinoids Screen NEGATIVE NEGATIVE My Orders Orders - JENNA SETIH MD Ed Iv/Invasive Line Start (05/18/20 01:26) Cbc With Automated Diff (05/18/20 01:26) Comprehensive Metabolic Panel (05/18/20 01:26) Drug Screen Stat (Urine) (05/18/20 01:26) Urinalysis (05/18/20 01:26) Lipase (05/18/20 01:26) Abdomen Flat & Upright/Decub (05/18/20 01:26) Ondansetron Injection (Zofran Injectio (05/18/20 01:30) Ketorolac Injection (Toradol Injection) (05/18/20 01:30) Ns Iv 1000 Ml (Sodium Chloride 0.9%) (05/18/20 01:26) Manual Differential (05/18/20 01:37) Dicyclomine Injection (Bentyl Injection) (05/18/20 02:15) Urine Culture (05/18/20 02:02) Cephalexin Capsule (Keflex Capsule) (05/18/20 02:31) Medications Given in ED Current Medications Medications Dose Ordered Sig/Olga Route Start Time Stop Time Status Last Admin Dose Admin Ketorolac Tromethamine 15 mg ONCE ONCE IV 05/18/20 01:30 05/18/20 01:31 DC 05/18/20 01:42 15 MG Ondansetron HCl 4 mg ONCE ONCE IVP 05/18/20 01:30 05/18/20 01:31 DC 05/18/20 01:42 4 MG Vital Signs/I&O 05/18/20 01:25 Temp 37.4 Pulse 119 Resp 24 B/P (MAP) 128/70 (89) Pulse Ox 98 O2 Delivery Room Air Progress Progress Note : Time: 02:32 Progress Note Plain film suggests patient says constipation. Patient is describing encopresis. Patient negative CT scan earlier today. Patient does have a mild urinary tract infection we'll write her prescription for Keflex. Encourage by mouth fluids. Take medications as instructed. Good bathroom habits. [id number] Senokot as needed for stool softener. Follow-up with PCP in 2-3 days Departure Impression Primary Impression: Constipation Additional Impressions: Urinary tract infection Colic in adult Disposition: 01 HOME, SELF-CARE Condition: Stable Departure-Patient Inst. Decision time for Depature: 02:33 Referrals: [facility] (PCP) Primary Care Physician JOY AGUIRRE APRN (Family) Primary Care Physician Patient Instructions: Constipation, Adult (DC) Add. Discharge Instructions: Encourage by mouth fluids. Take medications as instructed. Good bathroom habits. [id number] Senokot as needed for stool softener. Follow-up with PCP in 2-3 days All discharge instructions reviewed with patient and/or family. Voiced understanding. Scripts Cephalexin (Keflex) 500 Mg Capsule 500 MG PO BID, #10 CAP 0 Refills Prov: JENNA SETHI MD 05/18/20 Dicyclomine HCl (Dicyclomine HCl) 20 Mg Tablet 20 MG PO TID, #20 TAB 0 Refills Prov: JENNA SETHI MD 05/18/20 JENNA SETHI MD May 18, 2020 01:31
[2020-05-18 01:57] LABS: WHITE BLOOD COUNT 7.3 10^3/uL (4.3-11.0)
[2020-05-18 01:58] LABS: BASOPHILS % (AUTO) 0 % (0-10); EOSINOPHILS % (AUTO) 0 % (0-10); HEMATOCRIT 36 % (35-52); HEMOGLOBIN 11.9 G/DL (11.5-16.0); LYMPHOCYTES # (AUTO) 0.5 X 10^3 (1.0-4.0); LYMPHOCYTES % (AUTO) 6 % (12-44); MEAN CORPUSCULAR HEMOGLOBIN 29 PG (25-34); MEAN CORPUSCULAR HGB CONC 33 G/DL (32-36); MEAN CORPUSCULAR VOLUME 89 FL (80-99); MEAN PLATELET VOLUME 11.1 FL (7.4-10.4); MONOCYTES # (AUTO) 0.5 X 10^3 (0.0-1.0); MONOCYTES % (AUTO) 7 % (0-12); NEUTROPHILS # (AUTO) 6.2 X 10^3 (1.8-7.8); NEUTROPHILS % (AUTO) 86 % (42-75); PLATELET COUNT 210 10^3/uL (130-400); RED CELL DISTRIBUTION WIDTH 14.7 % (10.0-14.5)
--- NOTE | 2020-05-18 02:10 | NUR ---
PT. IS NOW C/O UPPER ABD. PAIN. IN THE BEGINNING IT WAS RIGHT LOWER QUAD PAIN.
[2020-05-18] MEDS ORDERED: DICYCLOMINE 10 MG/ML (BENTYL) 2 ML AMP IM STA (02:15)
[2020-05-18 02:22] LABS: BILIRUBIN,URINE NEGATIVE (NEGATIVE); CLARITY,URINE SLT CLOUDY; COLOR,URINE YELLOW; GLUCOSE, URINE (UA) NEGATIVE (NEGATIVE); KETONES,URINE NEGATIVE (NEGATIVE); LEUKOCYTE ESTERASE ,URINE 1+ (NEGATIVE); NITRITE,URINE NEGATIVE (NEGATIVE); PROTEIN,URINE NEGATIVE (NEGATIVE)
[2020-05-18 02:23] LABS: BACTERIA,URINE NEGATIVE /HPF
[2020-05-18 02:24] LABS: AMPHETAMINE SCREEN, URINE NEGATIVE (NEGATIVE); BARBITURATE SCREEN URINE NEGATIVE (NEGATIVE); BENZODIAZEPINES SCREEN URINE NEGATIVE (NEGATIVE); CANNABINOID SCREEN, URINE NEGATIVE (NEGATIVE); COCAINE SCREEN URINE NEGATIVE (NEGATIVE); METHADONE STAT NEGATIVE (NEGATIVE); METHAMPHETAMINE SCREEN URINE S NEGATIVE (NEGATIVE); OPIATE SCREEN URINE POSITIVE (NEGATIVE); OXYCODONE STAT NEGATIVE (NEGATIVE); PROPOXYPHENE STAT NEGATIVE (NEGATIVE); TRICYCLIC ANTIDEPRESSANTS SCRE NEGATIVE (NEGATIVE)
[2020-05-18 02:25] LABS: ALANINE AMINOTRANSFERASE 13 U/L (0-55); ALKALINE PHOSPHATASE 74 U/L (40-136); BILIRUBIN,TOTAL 0.2 MG/DL (0.1-1.0); BUN/CREATININE RATIO 13; CALCIUM 9.4 MG/DL (8.5-10.1); CARBON DIOXIDE 19 MMOL/L (21-32); CHLORIDE 102 MMOL/L (98-107); CREATININE SERUM 0.89 MG/DL (0.60-1.30); GFR ESTIMATED > 60; GLUCOSE 129 MG/DL (70-105); POTASSIUM 3.8 MMOL/L (3.6-5.0); SODIUM 133 MMOL/L (135-145)
[2020-05-18 02:26] LABS: ALBUMIN 4.2 GM/DL (3.2-4.5); BAND NEUTROPHILS 35 %; BASOPHILS % (MANUAL) 0 %; EOSINOPHILS % (MANUAL) 0 %; LIPASE 18 U/L (8-78); LYMPHOCYTES % (MANUAL) 5 %; METAMYELOCYTES % 1 %; MONOCYTES % (MANUAL) 2 %; MYELOCYTES % 2 %; NEUTROPHILS % (MANUAL) 55 %
[2020-05-18] MEDS ORDERED: CEPHALEXIN 250 MG (KEFLEX) CAP PO STA (02:31)
[2020-05-18] MEDS ORDERED: CEPHALEXIN 250 MG (KEFLEX) CAP PO ONE (02:34)
[2020-05-18] MEDS ORDERED: CEPH-507 PO (02:35)
[2020-05-18] MEDS ORDERED: DICY20TA10 PO (02:35)
[2020-05-18 02:40] VITALS: BP 128/70
--- NOTE | 2020-05-18 06:33 | Diagnostic Imaging Report ---
EXAMINATION: Abdominal radiographs, upright and supine views. 3 images. DATE: May 18, 2020. CLINICAL INDICATION: 35-year-old female, abdominal pain. COMPARISON: CT abdomen pelvis May 17, 2020. COMMENTS: There are no abnormally distended gas-filled segments of small or large bowel. There is no identified free intraperitoneal air, pneumatosis, or portal venous gas. The nonobstructing left renal stone seen on recent CT abdomen and pelvis are better seen on recent CT. There is no radiographically visible stone at the level of the ureters. There is an intrauterine contraceptive device projecting just slightly to the right of midline at the level of the pelvis. IMPRESSION: 1. The intrauterine contraceptive device is just slightly to the right of midline at the level of the pelvis. Correlating with recent CT, the intrauterine contraceptive device appears positioned at the level of the cervix/lower uterine segment. 2. Previously noted nonobstructing left renal stones better seen on prior CT. 3. No radiographically visible ureteral stone. 4. Unremarkable bowel gas pattern. Dictated by: Dictated on workstation # [id number]
== END 2020-05-18 02:40 | disposition home or self-care (01) ==
LOC: EDUNIT# 01:19 → ER FS 01:20
DX: K59.00 Constipation, unspecified (principal); N39.0 Urinary tract infection, site not specified; Z88.6 Allergy status to analgesic agent; Z88.5 Allergy status to narcotic agent
CPT/HCPCS: 36415; 74019; 80053; 80306; 81000; 83690; 85007; 85027; 87088

== ENCOUNTER → 2020-05-20 | Outpatient (CLI) | payer MEDICAID ==
[~2020-05-20] MED LIST changes: +ASCO500C17 PO; +CEPH-507 PO; +DICY20TA10 PO; +LEVO88TA54 PO; +MULT-1136 PO; +OMG1KC PO; +VITA1CAP PO; +VITA200C18 PO
== END ==
LOC: LAB 16:03
PROVIDERS: ATTEND Surgery
DX: R10.9 Unspecified abdominal pain (principal); R19.7 Diarrhea, unspecified
CPT/HCPCS: 87015; 87045; 87046; 87324; 87328; 87329; 87449; 87899

== ENCOUNTER 2020-05-21 09:16 | Outpatient (RCR) | payer MEDICAID ==
[~2020-05-21] VITALS: Ht 162 cm; Wt 85.9 kg
[~2020-05-21 09:16] MED LIST changes: -ASCO500C17 PO; -LEVO88TA54 PO; -MULT-1136 PO; -OMG1KC PO; -VITA1CAP PO; -VITA200C18 PO
[2020-05-21] MEDS ORDERED: LEVO88TA54 PO (10:47)
[2020-05-21] MEDS ORDERED: OMG1KC PO (10:53)
[2020-05-21] MEDS ORDERED: VITA200C18 PO (10:53)
[2020-05-21] MEDS ORDERED: MULT-1136 PO (10:53)
[2020-05-21] MEDS ORDERED: VITA1CAP PO (10:53)
[2020-05-21] MEDS ORDERED: ASCO500C17 PO (10:53)
== END 2020-05-21 10:58 | disposition home or self-care (01) ==
LOC: PREOP 09:16
PROVIDERS: ATTEND Surgery
DX: Z01.818 Encounter for other preprocedural examination (principal)

== ENCOUNTER 2020-05-24 09:32 | Day surgery (SDC) | payer MEDICAID ==
[~2020-05-24] VITALS: Ht 162 cm; Wt 85.9 kg
[~2020-05-24 09:32] MED LIST changes: +ASCO500C17 PO; +LEVO88TA54 PO; +MULT-1136 PO; +OMG1KC PO; +VITA1CAP PO; +VITA200C18 PO
--- OUTSIDE RECORDS SUMMARY | 2020-05-24 09:49 | XMS REPORT | Clinical Summary ---
Author Author Admin, Zakia Verma Organization [facility] Address Unknown Phone Unavailable Allergies, Adverse Reactions, Alerts Allergy Name Reaction Description Start Date Severity Status Pr ovider OXYCODONE HCL itcfhing Moderate Active Magda Elder Conditions or Problems Problem Name Problem Code Onset Date Status Entry Date Provider Comment Standard Description Annotate Kidney stone 592.0 Active Peter Decker MD Calculus of kidney Distal ureteral calculus, left 592.1 Active 05/03 Peter Decker MD Calculus of ureter BMI 32-32.9 Active Peter Decker MD Body Mass Index 32.0-32.9, adult Obesity Class I (BMI 30-34.9) Active 05/17 Peter Decker MD Obesity, unspecified Medication List Medication Instructions Start Date Stop Date Generic Name NDC Status Provider Patient Instruction OCUVITE EYE + MULTI ORAL TABLET 1 tab by mouth daily MULTIPLE VITAMINS-MINERALS 64498068890 Cristina Decker MD Act sal B COMPLEX-B12 ORAL TABLET 1 tab by mouth daily B COMPLEX VITAMINS 86606726767 Active Peter Decker MD Active VITAMIN D3 1000 UNIT ORAL CAPSULE 1 po qd CHOLEC ALCIFEROL 77406217702 Active Peter Decker MD Active FISH OIL 1000 MG ORAL CAPSULE DELAYED RELEASE 1 pill b y mouth twice daily for cholesterol OMEGA-3 FATTY ACIDS 88446088191 Active Peter pryor MD Active VITAMIN E 100 UNIT ORAL CAPSULE 1 cap by mouth daily VITAMIN E 98553200213 Active Peter Decker MD Active VITAMIN C 500 MG ORAL TABLET 1 tab by mouth daily ASCORBIC ACID 09784443580 Active Peter Decker MD Active LEVOTHYROXINE SODIUM 88 MCG ORAL TABLET 1 tablet by mouth daily for thyroid LEVOTHYROXINE SODIUM 17517268470 Cristina Decker MD Active ONDANSETRON 8 MG ORAL TABLET DISINTEGRATING 1 tab by mouth e very 6 hours ONDANSETRON 30509330746 No Longer Active J Sudhir mckinney MD Active FLOMAX 0.4 MG ORAL CAPSULE 1 Daily TAMSULOSI N HCL 63277959167 No Longer Active Peter Decker MD Active HYDROCODONE-ACETAMINOPHEN 7.5-325 MG ORAL TABLET 1 to 2 four times a day as needed for pain HYDROCODONE-ACETAMINOPHEN 35278127757 No Longer Active Peter Dekcer MD Active BACTRIM DS 800-160 MG ORAL TABLET 2 tabs by mouth daily TRIMETHOPRIM-SULFAMETHOXAZOLE 19788162696 No Longer Active Peter Decker MD Active CITALOPRAM HYDROBROMIDE 20 MG ORAL TABLET 1 tablet by mouth osmar y CITALOPRAM HYDROBROMIDE 14655393596 No Longer Active Peter Decker MD Active PHENTERMINE HCL 37.5 MG ORAL CAPSULE 1 tab by mouth da la 30 minutes before breakfast PHENTERMINE HCL 32934841473 No Longer Active Peter Decker MD Active PHENTERMINE HCL 37.5 MG ORAL CAPSULE 1 tab by mouth da la 30 minutes before breakfast PHENTERMINE HCL 37.5 MG ORAL CAPSULE 8033 48 PHENTERMINE HCL Inactive CITALOPRAM HYDROBROMIDE 20 MG ORAL TABLET 1 tablet by mouth osmar y CITALOPRAM HYDROBROMIDE 20 MG ORAL TABLET 748593 CITALOPRAM HYDROBROMIDE Inactive BACTRIM DS 800-160 MG ORAL TABLET 2 tabs by mouth daily BACTRIM DS 800-160 MG ORAL TABLET 043628 TRIMETHOPRIM-SULFAMETHOXAZ OLE Inactive HYDROCODONE-ACETAMINOPHEN 7.5-325 MG ORAL TABLET 1 to 2 four times a day as needed for pain HYDROCODONE-ACETAMIN OPHEN 7.5-325 MG ORAL TABLET 405429 HYDROCODONE-ACETAMINOPHEN Inactive FLOMAX 0.4 MG ORAL CAPSULE 1 Daily F NIKOS 0.4 MG ORAL CAPSULE 111595 TAMSULOSIN HCL Inactive ONDANSETRON 8 MG ORAL TABLET DISINTEGRATING 1 tab by mouth e very 6 hours ONDANSETRON 8 MG ORAL TABLET DISINTEGRATING 3120 87 ONDANSETRON Inactive Advance Directives Directive Description Start Date PERMISSION TO SHARE Vital Signs Date Name Value Unit Range Description blood pressure, diastolic, repeated by physician 82 BP payne blood pressure, diastolic 82 mm[Hg] BP payne blood pressure, systolic, repeated by physician 118 BP sys blood pressure, systolic 118 mm[Hg] BP sys height E&M 64 [in_us] Bdy height pulse rate 92 /min Heart rate temperature E&M 97.5 [degF] Body temp erature weight E&M 190 [lb_av] Weight Measure d Diagnostic Results Date Name Value Unit Range Description Office Visit: CN-kidney stone - Chemistr y RBC, urine, dipstick moderate non hemoglyzed protein, urine, by sulfasalicylic acid negative bilirubin, by Ictotest, urine negative Office Visit: CN-kidney stone - PMH sexually transmitted disease no risk noted Office Visit: CN-kidney stone - Urinalys is appearance, urine clear urine color straw specific gravity, urine 1.015 pH, urine, semiquantitative 6.0 protein, urine, semiquantitative (dipstick) 1+ glucose, urine, semiquantitative negative ketones, urine, by test strip negative bilirubin, urine negative nitrite, urine, semiquantitative negative urobilinogen, urine, semiquantitative (dipstick) 0.2 leukocyte esterase, urine, by dipstick negative Encounters Code Encounter Date Provider Facility CPT-26306 Level 3 Est. Patient 20:05:[address] [facility] CPT-33300 Level 3 New Patient 11:48:39 CDT J Sudhir barr MD [facility] - [facility] Procedures Code Procedure Name Date Entry Date Standard Desc ription CPT-97301 Abdomen, 1 view 15:07:35 CDT
--- OUTSIDE RECORDS SUMMARY | 2020-05-24 09:50 | XMS REPORT | Clinical Summary ---
Author Author Admin, Zakia Verma Organization [facility] Address Unknown Phone Unavailable Allergies, Adverse Reactions, [...] 1 tab by mouth daily MULTIPLE VITAMINS-MINERALS 56742142819 Active Peter Decker MD Act sal B COMPLEX-B12 ORAL TABLET 1 tab by mouth daily B COMPLEX VITAMINS 09556847391 Active Peter Decker MD Active VITAMIN D3 1000 UNIT ORAL CAPSULE 1 po qd CHOLEC ALCIFEROL 95688851557 Cristina Decker MD Active FISH OIL 1000 MG ORAL CAPSULE DELAYED RELEASE 1 pill b y mouth twice daily for cholesterol OMEGA-3 FATTY ACIDS 07143750787 Active Peter pryor MD Active VITAMIN E 100 UNIT ORAL CAPSULE 1 cap by mouth daily VITAMIN E 50749443880 Active Peter Decker MD Active VITAMIN C 500 MG ORAL TABLET 1 tab by mouth daily ASCORBIC ACID 33655860153 Active Peter Decker MD Active LEVOTHYROXINE SODIUM 88 MCG ORAL TABLET 1 tablet by mouth daily for thyroid LEVOTHYROXINE SODIUM 68292660077 Cristina Decker MD Active ONDANSETRON 8 MG ORAL TABLET DISINTEGRATING 1 tab by mouth e very 6 hours ONDANSETRON 13728012241 No Longer Active J Sudhir mckinney MD Active FLOMAX 0.4 MG ORAL CAPSULE 1 Daily TAMSULOSI N HCL 98218329859 No Longer Active Peter Decker MD Active HYDROCODONE-ACETAMINOPHEN 7.5-325 MG ORAL TABLET 1 to 2 four times a day as needed for pain HYDROCODONE-ACETAMINOPHEN 06385201166 No Longer Active Peter Decker MD Active BACTRIM DS 800-160 MG ORAL TABLET 2 tabs by mouth daily TRIMETHOPRIM-SULFAMETHOXAZOLE 64297729526 No Longer Active Peter Decker MD Active CITALOPRAM HYDROBROMIDE 20 MG ORAL TABLET 1 tablet by mouth osmar y CITALOPRAM HYDROBROMIDE 82617391641 No Longer Active Peter Decker MD Active PHENTERMINE HCL 37.5 MG ORAL CAPSULE 1 tab by mouth da la 30 minutes before breakfast PHENTERMINE HCL 62699176533 No Longer Active Peter Decker MD Active PHENTERMINE HCL 37.5 MG ORAL CAPSULE 1 tab by mouth da la 30 minutes before breakfast PHENTERMINE HCL 37.5 MG ORAL CAPSULE 8033 48 PHENTERMINE HCL Inactive CITALOPRAM HYDROBROMIDE 20 MG ORAL TABLET 1 tablet by mouth osmar y CITALOPRAM HYDROBROMIDE 20 MG ORAL TABLET 166317 CITALOPRAM HYDROBROMIDE Inactive BACTRIM DS 800-160 MG ORAL TABLET 2 tabs by mouth daily BACTRIM DS 800-160 MG ORAL TABLET 359149 TRIMETHOPRIM-SULFAMETHOXAZ OLE Inactive HYDROCODONE-ACETAMINOPHEN 7.5-325 MG ORAL TABLET 1 to 2 four times a day as needed for pain HYDROCODONE-ACETAMIN OPHEN 7.5-325 MG ORAL TABLET 605653 HYDROCODONE-ACETAMINOPHEN Inactive FLOMAX 0.4 MG ORAL CAPSULE 1 Daily F NIKOS 0.4 MG ORAL CAPSULE 746039 TAMSULOSIN HCL Inactive ONDANSETRON 8 MG ORAL [...] negative Encounters Code Encounter Date Provider Facility CPT-89694 Level 3 Est. Patient 20:05:56 ENIO otoole MD [facility] CPT-34247 Level 3 New Patient 11:48:39 CDT J Sudhir barr MD [facility] [place] Procedures Code Procedure Name Date Entry Date Standard Desc ription CPT-85432 Abdomen, 1 view 15:07:35 CDT
--- OUTSIDE RECORDS SUMMARY | 2020-05-24 09:50 | XMS REPORT | Continuity of Care Document ---
Author Organization Unknown Address Unknown Phone Unavailable Allergies Active Description Code Type Severity Reaction Onset Reported/Identified Relationship to Patient Clinical Status Yes acetaminophen [id number] Alvaro g Allergy Unknown N/A 05/20/2020 Yes oxycodone HCl [id number] Alvaro g Allergy Unknown N/A 05/20/2020 Medications There is no data. Problems Date Dx Coded Attending Type Code Diagnosis Diagnosed By 05/02/2018 Peter Decker MD N2 0.0 Kidney stone 05/03/2018 Peter Decker MD N2 0.1 Distal ureteral calculus, left 01/22/2019 JOY AGUIRRE GELATIN POWDER MIXER Ot M25.552 PAIN IN LEFT HIP 01/22/2019 JOY AGUIRRE S GELATIN POWDER MIXER Ot M79.672 PAIN IN LEFT FOOT 01/22/2019 TIMOTHY JOY S GELATIN POWDER MIXER Ot Z97.5 PRESENCE OF (INTRAUTERINE) CONTRACEPTIVE 01/22/2019 TIMOTHY JOY S GELATIN POWDER MIXER Ot M25.552 PAIN IN LEFT HIP 01/22/2019 TIMOTHY JOY S GELATIN POWDER MIXER Ot M79.672 PAIN IN LEFT FOOT 01/22/2019 TIMOTHY JOY S GELATIN POWDER MIXER Ot Z97.5 PRESENCE OF (INTRAUTERINE) CONTRACEPTIVE 01/23/2019 JOY AGUIRRE S GELATIN POWDER MIXER Ot M25.552 PAIN IN LEFT HIP 01/23/2019 TIMOTHY JOY S GELATIN POWDER MIXER Ot M79.672 PAIN IN LEFT FOOT 01/23/2019 TIMOTHY JOY S GELATIN POWDER MIXER Ot Z97.5 PRESENCE OF (INTRAUTERINE) CONTRACEPTIVE 05/08/2019 ITZEL RUSHING DO Ot E03. 9 HYPOTHYROIDISM, UNSPECIFIED 05/08/2019 ITZEL RUSHING DO Ot F17.200 NICOTINE DEPENDENCE, UNSPECIFIED, UNCOMP 05/08/2019 ITZEL RUSHING DO Ot R53. 83 OTHER FATIGUE 05/08/2019 ITZEL RUSHING DO Ot Z88. 5 ALLERGY STATUS TO NARCOTIC AGENT STATUS 05/08/2019 JOY AGUIRRE G[employer] MIXER Ot M25.552 PAIN IN LEFT HIP 05/08/2019 JOY AGUIRRE GELATIN POWDER MIXER Ot M79.672 PAIN IN LEFT FOOT 05/08/2019 JOY AGUIRRE GELATIN POWDER MIXER Ot Z97.5 PRESENCE OF (INTRAUTERINE) CONTRACEPTIVE 05/14/2019 [...] ALLERGY STATUS TO NARCOTIC AGENT STATUS 05/17/2020 NEDA AUSTIN MD Ot N20. 0 CALCULUS OF KIDNEY 05/17/2020 NEDA AUSTIN MD Ot R10. 9 UNSPECIFIED ABDOMINAL PAIN 05/17/2020 NEDA AUSTIN MD Ot Z88. 5 ALLERGY STATUS TO NARCOTIC AGENT STATUS 05/17/2020 NORMAN BARBOZA, NEDA Green Ot Z88. 6 ALLERGY STATUS TO ANALGESIC AGENT STATUS 05/17/2020 JOY AGUIRRE G[employer]AT[employer] POWDER MIXER Ot M25.552 PAIN IN LEFT HIP 05/17/2020 JOY AGUIRRE GELATIN POWDER MIXER Ot M79.672 PAIN IN LEFT FOOT 05/17/2020 JOY AGUIRRE GELATIN POWDER MIXER Ot Z97.5 PRESENCE OF (INTRAUTERINE) CONTRACEPTIVE 05/17/2020 Jeronimo BARBOZA, Peter Peguero E6 6.9 Obesity Class I (BMI 30-34.9) 05/17/2020 Peter Decker MD Z68.32 BMI 32-32.9 05/18/2020 JENNA SETHI MD Ot K59.00 CONSTIPATION, UNSPECIFIED 05/18/2020 JENNA SETHI MD Ot N39.0 URINARY TRACT INFECTION, SITE NOT SPECIF 05/18/2020 JENNA SETHI MD Ot R10.30 LOWER ABDOMINAL PAIN, UNSPECIFIED 05/18/2020 JENNA SETHI MD Ot Z88.5 ALLERGY STATUS TO NARCOTIC AGENT STATUS 05/18/2020 JENNA SETHI MD Ot Z88.6 ALLERGY STATUS TO ANALGESIC AGENT STATUS 05/19/2020 NEDA AUSTIN MD Ot N20. 0 CALCULUS OF KIDNEY 05/19/2020 NEDA AUSTIN MD Ot R10. 9 UNSPECIFIED ABDOMINAL PAIN 05/19/2020 NEDA AUSTIN MD Ot Z88. 5 ALLERGY STATUS TO NARCOTIC AGENT STATUS 05/19/2020 NEDA AUSTIN MD Ot Z88. 6 ALLERGY STATUS TO ANALGESIC AGENT STATUS 05/20/2020 JENNA SETHI MD Ot K59.00 CONSTIPATION, UNSPECIFIED 05/20/2020 JENNA SETHI MD Ot N39.0 URINARY TRACT INFECTION, SITE NOT SPECIF 05/20/2020 JENNA SETHI MD Ot R10.30 LOWER ABDOMINAL PAIN, UNSPECIFIED 05/20/2020 JENNA SETHI MD Ot Z88.5 ALLERGY STATUS TO NARCOTIC AGENT STATUS 05/20/2020 JENNA SETHI MD Ot Z88.6 ALLERGY STATUS TO ANALGESIC AGENT STATUS 05/20/2020 JENNA SETHI MD Ot K59.00 CONSTIPATION, UNSPECIFIED 05/20/2020 JENNA SETHI MD Ot N39.0 URINARY TRACT INFECTION, SITE NOT SPECIF 05/20/2020 JENNA SETHI MD, Ot R10.30 LOWER ABDOMINAL PAIN, UNSPECIFIED 05/20/2020 JENNA SETHI MD Ot Z88.5 ALLERGY STATUS TO NARCOTIC AGENT STATUS 05/20/2020 JENNA SETHI MD, Ot Z88.6 ALLERGY STATUS TO ANALGESIC AGENT STATUS 05/20/2020 JOY AGUIRRE GELATIN POWDER MIXER Ot M25.552 PAIN IN LEFT HIP 05/20/2020 JOY AGUIRRE GELATIN POWDER MIXER Ot M79.672 PAIN IN LEFT FOOT 05/20/2020 JOY AGUIRRE GELATIN POWDER MIXER Ot Z97.5 PRESENCE OF (INTRAUTERINE) CONTRACEPTIVE Procedures There is no data. Results Test [...] urinalysis with reflex to culture NO NRG Complete blood count (CBC) with automate d white blood cell (WBC) differential - 05/18/20 01:37 Blood leukocytes automated count (number/volume) 7.3 10*3/uL 4.3-11.0 Blood erythrocytes automated count (number/volume) 4.08 10*6/uL 4.35-5.85 Venous blood hemoglobin measurement (mass/volume) 11.9 g/dL 11.5-16.0 Blood hematocrit (volume fraction) 36 % 35-52 Automated erythrocyte mean corpuscular volume 89 [ foz_us] 80-99 Automated erythrocyte mean corpuscular h emoglobin (mass per erythrocyte) 29 pg 25-34 Automated erythrocyte mean corpuscular h emoglobin concentration measurement (mass/volume) 33 g/dL 32-36 Automated erythrocyte distribution width ratio 14. 7 % 10.0- 14.5 Automated blood platelet count (count/volume) 210 10*3/uL 130-400 Automated blood platelet mean volume measurement 11.1 [foz_us] 7.4-10.4 Automated blood neutrophils/100 leukocytes 86 % 42-75 Automated blood lymphocytes/100 leukocytes 6 % 12-44 Blood monocytes/100 leukocytes 7 % 0-12 Automated blood eosinophils/100 leukocytes 0 % 0-10 Automated blood basophils/100 leukocytes 0 % 0-10 Blood neutrophils automated count (number/volume) 6.2 10*3 1.8-7.8 Blood lymphocytes automated count (number/volume) 0.5 10*3 1.0-4.0 Blood monocytes automated count (number/volume) 0. 5 10*3 0.0-1.0 Automated eosinophil count 0.0 10*3/uL 0 .0-0.3 Automated blood basophil count (count/volume) 0.0 10*3/uL 0.0-0.1 Comprehensive metabolic panel - 05/18/20 01:37 Serum or plasma sodium measurement (moles/volume) 133 mmol/L 135-145 Serum or plasma potassium measurement (moles/volume) 3.8 mmol/L 3.6-5.0 Serum or plasma chloride measurement (moles/volume) 102 mmol/L 98-107 Carbon dioxide 19 mmol/L 21-32 Serum or plasma anion gap determination (moles/volume) 12 mmol/L 5-14 Serum or plasma urea nitrogen measurement (mass/volume ) 12 mg/dL 7-18 Serum or plasma creatinine measurement (mass/volume) 0.89 mg/dL 0.60-1.30 Serum or plasma urea nitrogen/creatinine mass ratio 13 NRG Serum or plasma creatinine measurement w ith calculation of estimated glomerular filtration rate > NRG Serum or plasma glucose measurement (mass/volume) 129 mg/dL 70-105 Serum or plasma calcium measurement (mass/volume) 9.4 mg/dL 8.5-10.1 Serum or plasma total bilirubin measurement (mass/volu me) 0.2 mg/dL 0.1-1.0 Serum or plasma alkaline phosphatase reggie surement (enzymatic activity/volume) 74 U/L 40-136 Serum or plasma aspartate aminotransfera se measurement (enzymatic activity/volume) 12 U/L 5-34 Serum or plasma alanine aminotransferase measurement (enzymatic activity/volume) 13 U/L 0-55 Serum or plasma protein measurement (mass/volume) 7.0 g/dL 6.4-8.2 Serum or plasma albumin measurement (mass/volume) 4.2 g/dL 3.2-4.5 CALCIUM CORRECTED 9.2 mg/dL 8.5-10.1 Lipase - 05/18/20 01:37 Lipase 18 U/L 8-78 Manual absolute plasma cell count - 04/22 06/10 01:37 Blood monocytes/100 leukocytes 2 % NRG Manual blood segmented neutrophils/100 leukocytes 55 % NRG Blood band neutrophils/100 leukocytes 35 % NRG Manual blood lymphocytes/100 leukocytes 5 % NRG Manual eosinophils/100 leukocytes in nose 0 % NRG Manual blood basophils/100 leukocytes 0 % NRG Manual blood metamyelocytes/100 leukocytes 1 % NRG Manual blood myelocytes/100 leukocytes 2 % NRG Complete urinalysis with reflex to cultu re - 05/18/20 02:02 Urine color determination YELLOW NRG Urine clarity determination SLT CLOUDY NRG Urine pH measurement by test strip 6.0 5-9 Specific gravity of urine by test strip 1.010 1.016-1.022 Urine protein assay by test strip, [...] 1.0 Urine leukocyte esterase detection by dipstick 1+ NEGATIVE Automated urine sediment erythrocyte cou nt by microscopy (number/high power field) NONE NRG Automated urine sediment leukocyte count by microscopy (number/high power field) [HPF] NRG Bacteria detection in urine sediment by light microsco py NEGATIVE NRG Squamous epithelial cells detection in u rine sediment by light microscopy 10-25 NRG Crystals detection in urine sediment by light microsco py NONE NRG Casts detection in urine sediment by light microscopy NONE NRG Mucus detection in urine sediment by light microscopy SMALL NRG Complete urinalysis with reflex to culture YES NRG Urine drug screening test - 05/18/20 02: 02 Urine phencyclidine detection by screening method NEGATIVE NEGATIVE Urine benzodiazepines detection by screening method NEGATIVE NEGATIVE Urine cocaine detection NEGATIVE NEGATI VE Urine amphetamines detection by screening method N EGATIVE NEGATIVE Urine methamphetamine detection by screening method NEGATIVE NEGATIVE Urine cannabinoids detection by screening method N EGATIVE NEGATIVE Urine opiates detection by screening method POSITI VE NEGATIVE Urine barbiturates detection NEGATIVE N EGATIVE Screening urine tricyclic antidepressants detection NEGATIVE NEGATIVE Urine methadone detection by screening method NEGA TIVE NEGATIVE Urine oxycodone detection NEGATIVE NEGA TIVE Urine propoxyphene detection NEGATIVE N EGATIVE Bacterial urine culture - 05/18/20 02:02 Bacterial urine culture NG NRG Encounters ACCT No. Visit Date/Time Discharge Status Pt. Type Provider Facility Loc./Unit Complaint [id number] 05/17/2020 17:14:01 ACT Unknown Jeronimo BARBOZA, Peter Peguero [id number] 05/21/2020 09:16:00 10:58:00 DIS Outpatient MATI JHAVERI DO [facility] PREOP EGD/COLONOSCOPY [id number] 05/20/2020 16:03:00 23:59:59 CLS Outpatient MATI JHAVERI DO [facility] LAB ABDOMINAL PAIN, DIARRHE A [id number] 05/18/2020 01:20:00 02:40:00 DIS Emergency JOSSIE BARBOZA, JENNA Baird [facility] ER FS ABD PAIN [id number] 05/17/2020 09:15:00 11:16:00 DIS Emergency NEDA AUSTIN MD [facility] ER FS ABD PAIN [id number] 11/05/2019 10:56:00 23:59:59 CLS Preadmit JOY AGUIRRE GELATIN POWDER MIXER [facility] RAD SWALLOWING IMPAIRED [id number] 06/15/2019 17:05:00 18:02:00 DIS Emergency NEDA AUSTIN MD [facility] ER FS RT ARM PAIN - FALL [id number] 05/08/2019 17:39:00 20:10:00 DIS Emergency ITZEL RUSHING DO [facility] ER FS CHEST PAIN, ARMS AND LE GS NUMB, POSS HEAD INJ [id number] 01/21/2019 12:08:00 23:59:59 CLS Outpatient JOY AGUIRRE G[employer] M[employer]ER [facility] RAD FS M79.672 [id number] 05/24/2020 11:50:00 P EN Preadmit MATI JHAVERI DO [facility] ENDO ABD PAIN/DIARRHEA [id number] 05/21/2020 09:40:00 ACT Outpatient OJY AGUIRRE [facility] [id number] 03/23/2020 10:45:00 Document Registration [id number] 02/20/2020 10:30:00 Document Registration [id number] 11/25/2019 09:45:00 Document Registration [id number] 08/22/2019 17:10:00 Document Registration [id number] 07/03/2019 16:00:00 Document Registration [id number] 04/03/2019 15:30:00 Document Registration [id number] 04/02/2019 11:15:00 Document Registration [id number] 01/29/2019 14:00:00 Document Registration [id number] 12/19/2018 12:30:00 Document Registration
--- OUTSIDE RECORDS SUMMARY | 2020-05-24 09:50 | XMS REPORT | Clinical Summary ---
Author Author Admin, Zakia Verma Organization [facility] Address Unknown Phone Unavailable [...] 1 tab by mouth daily MULTIPLE VITAMINS-MINERALS 04091006858 Active Peter Decker MD Act sal B COMPLEX-B12 ORAL TABLET 1 tab by mouth daily B COMPLEX VITAMINS 81568486846 Active Peter Decker MD Active VITAMIN D3 1000 UNIT ORAL CAPSULE 1 po qd CHOLEC ALCIFEROL 41988511380 Cristina Decker MD Active FISH OIL 1000 MG ORAL CAPSULE DELAYED RELEASE 1 pill b y mouth twice daily for cholesterol OMEGA-3 FATTY ACIDS 78924697788 Active Peter pryor MD Active VITAMIN E 100 UNIT ORAL CAPSULE 1 cap by mouth daily VITAMIN E 08186615558 Active Peter Decker MD Active VITAMIN C 500 MG ORAL TABLET 1 tab by mouth daily ASCORBIC ACID 34492377530 Active Peter Decker MD Active LEVOTHYROXINE SODIUM 88 MCG ORAL TABLET 1 tablet by mouth daily for thyroid LEVOTHYROXINE SODIUM 34300993126 Cristina Decker MD Active ONDANSETRON 8 MG ORAL TABLET DISINTEGRATING 1 tab by mouth e very 6 hours ONDANSETRON 44360108715 No Longer Active J Sudhir mckinney MD Active FLOMAX 0.4 MG ORAL CAPSULE 1 Daily TAMSULOSI N HCL 01326495533 No Longer Active Peter Decker MD Active HYDROCODONE-ACETAMINOPHEN 7.5-325 MG ORAL TABLET 1 to 2 four times a day as needed for pain HYDROCODONE-ACETAMINOPHEN 86157291638 No Longer Active Peter Decker MD Active BACTRIM DS 800-160 MG ORAL TABLET 2 tabs by mouth daily TRIMETHOPRIM-SULFAMETHOXAZOLE 21421360785 No Longer Active Peter Decker MD Active CITALOPRAM HYDROBROMIDE 20 MG ORAL TABLET 1 tablet by mouth osmar y CITALOPRAM HYDROBROMIDE 08554051570 No Longer Active Peter Decker MD Active PHENTERMINE HCL 37.5 MG ORAL CAPSULE 1 tab by mouth da la 30 minutes before breakfast PHENTERMINE HCL 27723877362 No Longer Active Peter Decker MD Active PHENTERMINE HCL 37.5 MG ORAL CAPSULE 1 tab by mouth da la 30 minutes before breakfast PHENTERMINE HCL 37.5 MG ORAL CAPSULE 8033 48 PHENTERMINE HCL Inactive CITALOPRAM HYDROBROMIDE 20 MG ORAL TABLET 1 tablet by mouth osmar y CITALOPRAM HYDROBROMIDE 20 MG ORAL TABLET 756319 CITALOPRAM HYDROBROMIDE Inactive BACTRIM DS 800-160 MG ORAL TABLET 2 tabs by mouth daily BACTRIM DS 800-160 MG ORAL TABLET 262571 TRIMETHOPRIM-SULFAMETHOXAZ OLE Inactive HYDROCODONE-ACETAMINOPHEN 7.5-325 MG ORAL TABLET 1 to 2 four times a day as needed for pain HYDROCODONE-ACETAMIN OPHEN 7.5-325 MG ORAL TABLET 396703 HYDROCODONE-ACETAMINOPHEN Inactive FLOMAX 0.4 MG ORAL CAPSULE 1 Daily F NIKOS 0.4 MG ORAL CAPSULE 696674 TAMSULOSIN HCL Inactive ONDANSETRON 8 MG ORAL [...] negative Encounters Code Encounter Date Provider Facility CPT-99175 Level 3 Est. Patient 20:05:56 ENIO otoole MD [facility] CPT-50333 Level 3 New Patient 11:48:39 CDT J Sudhir barr MD [facility] [place] Procedures Code Procedure Name Date Entry Date Standard Desc ription CPT-85512 Abdomen, 1 view 15:07:35 CDT
--- OUTSIDE RECORDS SUMMARY | 2020-05-24 09:50 | XMS REPORT | Clinical Summary ---
Author Author Admin, Zakia Verma Organization [facility] Address Unknown Phone Unavailable Allergies, Adverse Reactions, [...] 1 tab by mouth daily MULTIPLE VITAMINS-MINERALS 11821686942 Active Peter Decker MD Act sal B COMPLEX-B12 ORAL TABLET 1 tab by mouth daily B COMPLEX VITAMINS 45374379604 Active Peter Decker MD Active VITAMIN D3 1000 UNIT ORAL CAPSULE 1 po qd CHOLEC ALCIFEROL 28091420036 Cristina Decker MD Active FISH OIL 1000 MG ORAL CAPSULE DELAYED RELEASE 1 pill b y mouth twice daily for cholesterol OMEGA-3 FATTY ACIDS 78331624746 Active Peter pryor MD Active VITAMIN E 100 UNIT ORAL CAPSULE 1 cap by mouth daily VITAMIN E 13932616707 Active Peter Decker MD Active VITAMIN C 500 MG ORAL TABLET 1 tab by mouth daily ASCORBIC ACID 90260393701 Active Peter Decker MD Active LEVOTHYROXINE SODIUM 88 MCG ORAL TABLET 1 tablet by mouth daily for thyroid LEVOTHYROXINE SODIUM 08138277630 Cristina Decker MD Active ONDANSETRON 8 MG ORAL TABLET DISINTEGRATING 1 tab by mouth e very 6 hours ONDANSETRON 28323948037 No Longer Active J Sudhir mckinney MD Active FLOMAX 0.4 MG ORAL CAPSULE 1 Daily TAMSULOSI N HCL 08472658677 No Longer Active Peter Decker MD Active HYDROCODONE-ACETAMINOPHEN 7.5-325 MG ORAL TABLET 1 to 2 four times a day as needed for pain HYDROCODONE-ACETAMINOPHEN 15154108200 No Longer Active Peter Decker MD Active BACTRIM DS 800-160 MG ORAL TABLET 2 tabs by mouth daily TRIMETHOPRIM-SULFAMETHOXAZOLE 47151657431 No Longer Active Peter Decker MD Active CITALOPRAM HYDROBROMIDE 20 MG ORAL TABLET 1 tablet by mouth osmar y CITALOPRAM HYDROBROMIDE 09938021090 No Longer Active Peter Decker MD Active PHENTERMINE HCL 37.5 MG ORAL CAPSULE 1 tab by mouth da la 30 minutes before breakfast PHENTERMINE HCL 02532796532 No Longer Active Peter Decker MD Active PHENTERMINE HCL 37.5 MG ORAL CAPSULE 1 tab by mouth da la 30 minutes before breakfast PHENTERMINE HCL 37.5 MG ORAL CAPSULE 8033 48 PHENTERMINE HCL Inactive CITALOPRAM HYDROBROMIDE 20 MG ORAL TABLET 1 tablet by mouth osmar y CITALOPRAM HYDROBROMIDE 20 MG ORAL TABLET 394056 CITALOPRAM HYDROBROMIDE Inactive BACTRIM DS 800-160 MG ORAL TABLET 2 tabs by mouth daily BACTRIM DS 800-160 MG ORAL TABLET 945216 TRIMETHOPRIM-SULFAMETHOXAZ OLE Inactive HYDROCODONE-ACETAMINOPHEN 7.5-325 MG ORAL TABLET 1 to 2 four times a day as needed for pain HYDROCODONE-ACETAMIN OPHEN 7.5-325 MG ORAL TABLET 570013 HYDROCODONE-ACETAMINOPHEN Inactive FLOMAX 0.4 MG ORAL CAPSULE 1 Daily F NIKOS 0.4 MG ORAL CAPSULE 053609 TAMSULOSIN HCL Inactive ONDANSETRON 8 MG ORAL [...] negative Encounters Code Encounter Date Provider Facility CPT-44229 Level 3 Est. Patient 20:05:56 ENIO otoole MD [facility] CPT-04571 Level 3 New Patient 11:48:39 CDT J Sudhir barr MD [facility] [place] Procedures Code Procedure Name Date Entry Date Standard Desc ription CPT-82770 Abdomen, 1 view 15:07:35 CDT
[2020-05-24] MEDS ORDERED: LACTATED RINGERS 1,000 ML IV ONE (09:56)
[2020-05-24 10:00] VITALS: BP 94/54
[2020-05-24] MEDS ORDERED: LACTATED RINGERS 1,000 ML IV STA (10:07)
[2020-05-24] MEDS ORDERED: HURRICAINE EXT TUBE (BENZOCAINE) XX PRN (10:15)
[2020-05-24] MEDS ORDERED: PROPOFOL INJECTION 50 ML IV ONE ×2 (10:30→10:47)
[2020-05-24] MEDS ORDERED: MIDAZOLAM 2 MG/2 ML (VERSED) VIAL ONE (10:30)
--- NOTE | 2020-05-24 10:34 | Progress Note-Pre Operative ---
Pre-Operative Progress Note H&P Reviewed The H&P was reviewed, patient examined and no changes noted. Time Seen by Provider: 10:32 Date H&P Reviewed: May 24, 2020 Time H&P Reviewed: 10:32 Pre-Operative Diagnosis: Abd pain, diarrhea, change in bowel habits MATI JHAVERI DO May 24, 2020 10:34
[2020-05-24 11:15] VITALS: BP 94/52
[2020-05-24 11:20] VITALS: BP_SYST 101; BP_SYST 98; BP_DIAS 58; BP_DIAS 64
--- NOTE | 2020-05-24 11:21 | Progress Note-Post Operative ---
Post-Operative Progess Note Surgeon (s)/Financial Analyst (s) Surgeon MATI JHAVERI DO Financial Analyst: PEDRO Nam Pre-Operative Diagnosis Abd pain, diarrhea, change in bowel habits Post-Operative Diagnosis Gastritis Hiatal Hernia Martinez's Esophagus Colitis Int Hemorrhoid Procedure & Operative Findings Date of Procedure 05/24/20 Procedure Performed/Findings EGD with Bx Colon with random bx Anesthesia Type IV sedation by ENDOCRINOLOGIST Estimated Blood Loss Estimated blood loss (mL): scant Specimens/Packing Specimens Removed antral bx body of stomach bx GE jxn random colon bx MATI JHAVERI DO May 24, 2020 11:21
--- NOTE | 2020-05-24 11:22 | Endoscopy Discharge Instruct ---
Endo Procedure/Findings Findings 1.: Hiatal Hernia, Gastritis 2.: Martinez's Esophagus 3.: Colitis 4.: Internal Hemorrhoids Discharge Instructions - Activity: You might feel a little sleepy until tomorrow. This is due to the medicine you received to relax you. Until tomorrow, you should: NOT drive a car, operate machinery or power tools. NOT drink any alcoholic beverages. NOT make any important decisions or sign importortant papers. Do not return to work until tomorrow, unless otherwise instructed. Resume previous activities tomorrow. Diet: Start by taking liquids. If you tolerate liquids, advance to solid food. make an appointment for one week 1.: EGD in 1 year Notify Physician - If you experience excessive bleeding, unusual abdominal pain, fever, or chest pain, contact your doctor immediately. MATI JHAVERI DO May 24, 2020 11:22
[2020-05-24 11:50] VITALS: BP 101/59
[2020-05-24 11:55] VITALS: BP 101/59
--- NOTE | 2020-05-25 07:07 | OPERATIVE REPORT ---
DATE OF SERVICE: 05/24/2020 PREOPERATIVE DIAGNOSES: Right lower quadrant pain, diarrhea, change in bowel habits. POSTOPERATIVE DIAGNOSES: 1. Gastritis. 2. Hiatal hernia. 3. Questionable Martinez's esophagus. 4. Colitis. 5. Internal hemorrhoids. PROCEDURES: 1. EGD with biopsy. 2. Colonoscopy with cold biopsy. SURGEON: Eagle Jhaveri DO BOBBIN WINDER: Ladi Walker MS3. ANESTHESIA: IV sedation by the MEDICAL DATA ANALYST. SPECIMEN: Biopsy of the antrum, biopsy of body of stomach, biopsy of the GE junction and then random cold biopsies. BLOOD LOSS: Scant. FLUIDS: Per anesthesia. POSTOPERATIVE CONDITION: Stable. INDICATION FOR PROCEDURE: The patient is a 35-year-old female who had a right lower quadrant pain, diarrhea, change in bowel habits with some needed workup. FINDINGS: The patient had what looked like Martinez's esophagus. She also had a small hiatal hernia and some mild gastritis. In the colon, she had what looked like pseudomembranous colitis with ulcerations throughout. Random biopsy was done. PROCEDURE NOTE: After informed consent was obtained, the patient was brought to the endoscopy suite, placed in bed in left lateral decubitus position. She was administered IV sedation by the MEDICAL DATA ANALYST, who monitored her vitals the entire time, heart rate, blood pressure and pulse ox. We started with the EGD, placing scope down the mouth through the esophagus and into the stomach. On the way down, in the esophagus noted what looked like lines coming up out of the GE junction, looked like a Martinez's esophagus, took a picture, pushed into the stomach, had some mild gastritis, took a picture, pushed into the duodenum, duodenum looked fine. Pulled back and did a biopsy of the antrum, then retroflexed the scope, saw hiatal hernia, took a picture and then did a biopsy of body of stomach and then pulled the scope up into the GE junction, and did two biopsies here. Placed the scope back into the stomach, suctioned out all the air and then pulled the scope up the esophagus and out the mouth. Switched camera, switched gloves, went down below, started the colonoscopy and upon entry, noted some ulcerations, took a picture of this, pushed all the way to about 150 cm, able to get to the cecum, took a picture of appendiceal orifice, noted the ileocecal valve and then throughout this colon seen, looked like almost a pseudomembranous colitis turns out she has a Campylobacter positive colitis, did not realize this until after the scope; however, once in the cecum, slowly withdrew the scope insufflating to look circumferential at messer looking the cecum, up the ascending colon to the hepatic flexure, then down the transverse colon, splenic flexure, into the descending colon down into the sigmoid and finally into the rectum, retroflexed in the rectal vault and saw some internal hemorrhoids, took a picture of these; throughout the colon, did 5 random cold biopsies in the area that looked like ulcerations and erythema. These were all sent to pathology. The patient tolerated the procedure, recovered in endoscopy suite. Job ID: [id number] DocumentID: [id number] Dictated Date: 05/24/2020 19:27:04 Side Boss Date: 05/25/2020 06:05:03 Dictated By: EAGLE JHAVERI DO [email or web address]
--- NOTE | 2020-05-28 20:11 | Anesthesia-General Post-Op ---
MAC Significant Intra-Op Events Notes Late Entry Patient Condition Mental Status/LOC: Same as Preop Cardiovascular: Satisfactory Nausea/Vomiting: Absent Respiratory: Satisfactory Pain: Controlled Complications: Absent Post Op Complications Complications None Follow Up Care/Instructions Patient Instructions None needed. Anesthesiology Discharge Order Discharge Order Patient is doing well, no complaints, stable vital signs, no apparent adverse anesthesia problems. No complications reported per nursing. GREGORY RUIZ CRNA May 28, 2020 20:11
== END 2020-05-24 11:55 | disposition home or self-care (01) ==
LOC: ENDO 09:32
PROVIDERS: ATTEND Surgery
DX: K21.0 Gastro-esophageal reflux disease with esophagitis (principal); K29.70 Gastritis, unspecified, without bleeding; K44.9 Diaphragmatic hernia without obstruction or gangrene; K52.9 Noninfective gastroenteritis and colitis, unspecified; K64.8 Other hemorrhoids; E06.3 Autoimmune thyroiditis; F32.9 Major depressive disorder, single episode, unspecified; K80.18 Calculus of gallbladder with other cholecystitis without obstruction; F17.210 Nicotine dependence, cigarettes, uncomplicated; Z88.5 Allergy status to narcotic agent; Z79.890 Hormone replacement therapy
CPT/HCPCS: 87015; 87046; 87324; 87328; 87449; 87899; 88305

== ENCOUNTER → 2020-06-04 | Outpatient (CLI) | payer MEDICAID ==
--- NOTE | 2020-06-04 13:25 | Diagnostic Imaging Report ---
INDICATION: Followup lithotripsy. History of kidney stones. COMPARISON: 05/18/2020 FINDINGS: 2 frontal radiographic views of the abdomen were obtained. Small bowel loops are nondistended. Moderate air and stool is noted within the colon. Indwelling intrauterine contraceptive device is present. No other unexpected extraosseous calcifications or radiopaque foreign bodies are seen. There is no large collection of free intraperitoneal air. Included portions of the lung bases are clear. IMPRESSION: 1. No unexpected extraosseous calcifications or radiopaque foreign bodies. 2. Moderate colonic air and stool. Please correlate for constipation. Dictated by: Dictated on workstation # [id number]
== END ==
LOC: RAD FS 12:33
PROVIDERS: ATTEND Urology
DX: Z87.442 Personal history of urinary calculi (principal)
CPT/HCPCS: 74018

== ENCOUNTER → 2020-06-08 | Outpatient (CLI) | payer MEDICAID | LOC: LAB 15:56 | PROVIDERS: ATTEND Surgery | DX: A04.5 Campylobacter enteritis (principal) | CPT/HCPCS: 87015; 87045; 87046; 87899 ==

== ENCOUNTER → 2020-09-28 | Outpatient (CLI) | payer MEDICAID ==
[2020-09-28 09:48] LABS: HEMATOCRIT 40 % (35-52); HEMOGLOBIN 12.9 G/DL (11.5-16.0); MEAN CORPUSCULAR HEMOGLOBIN 30 PG (25-34); MEAN CORPUSCULAR HGB CONC 33 G/DL (32-36); MEAN CORPUSCULAR VOLUME 93 FL (80-99); MEAN PLATELET VOLUME 9.9 FL (7.4-10.4); PLATELET COUNT 239 10^3/uL (130-400); WHITE BLOOD COUNT 6.7 10^3/uL (4.3-11.0)
[2020-09-28 09:49] LABS: BASOPHILS % (AUTO) 1 % (0-10); EOSINOPHILS # (AUTO) 0.1 10^3/uL (0.0-0.3); EOSINOPHILS % (AUTO) 2 % (0-10); LYMPHOCYTES # (AUTO) 1.1 X 10^3 (1.0-4.0); LYMPHOCYTES % (AUTO) 16 % (12-44); MONOCYTES # (AUTO) 0.4 X 10^3 (0.0-1.0); MONOCYTES % (AUTO) 6 % (0-12); NEUTROPHILS # (AUTO) 5.1 X 10^3 (1.8-7.8); NEUTROPHILS % (AUTO) 75 % (42-75)
[2020-09-28 10:18] LABS: BUN/CREATININE RATIO 15; CARBON DIOXIDE 27 MMOL/L (21-32); CHLORIDE 106 MMOL/L (98-107); CREATININE SERUM 0.81 MG/DL (0.60-1.30); GFR ESTIMATED > 60; GLUCOSE 111 MG/DL (70-105); MAGNESIUM 2.1 MG/DL (1.6-2.4); POTASSIUM 4.2 MMOL/L (3.6-5.0); SODIUM 140 MMOL/L (135-145)
[2020-09-28 10:19] LABS: ALANINE AMINOTRANSFERASE 19 U/L (0-55); ALKALINE PHOSPHATASE 76 U/L (40-136); BILIRUBIN,TOTAL 0.2 MG/DL (0.1-1.0); TOTAL PROTEIN 6.9 GM/DL (6.4-8.2)
== END ==
LOC: LAB FS 09:23
PROVIDERS: ATTEND Nurse Practitioner Family
DX: E06.3 Autoimmune thyroiditis (principal)
CPT/HCPCS: 36415; 80053; 82306; 82607; 83735; 84443; 85025

== ENCOUNTER → 2020-09-30 | Outpatient (CLI) | payer MEDICAID ==
--- NOTE | 2020-09-30 12:04 | Diagnostic Imaging Report ---
PROCEDURE: CT head without contrast. TECHNIQUE: Multiple contiguous axial images were obtained through the brain without the use of intravenous contrast. Auto Exposure Controls were utilized during the CT exam to meet ALARA standards for radiation dose reduction. INDICATION: Headaches and intermittent seizures. No prior studies are available for comparison. The ventricles and sulci are within normal limits. No sulcal effacement or midline shift is identified. No acute intra-axial or extra-axial hemorrhage is detected. Cisterns are patent. Visualized paranasal sinuses are clear. IMPRESSION: No acute intracranial process is detected. Dictated by: Dictated on workstation # [id number]
== END ==
LOC: RAD FS 11:37
PROVIDERS: ATTEND Nurse Practitioner Family
DX: G43.011 Migraine without aura, intractable, with status migrainosus (principal); E06.3 Autoimmune thyroiditis
CPT/HCPCS: 70450

== ENCOUNTER 2021-02-23 16:59 | Emergency (ER) | payer MEDICAID ==
[~2021-02-23] VITALS: Ht 162.6 cm; Wt 88.6 kg
[2021-02-23 17:14] LABS: HCG,QUALITATIVE URINE NEGATIVE (NEGATIVE)
[2021-02-23 17:19] LABS: BILIRUBIN,URINE NEGATIVE (NEGATIVE); CLARITY,URINE SLT CLOUDY; COLOR,URINE YELLOW; GLUCOSE, URINE (UA) NEGATIVE (NEGATIVE); KETONES,URINE NEGATIVE (NEGATIVE); LEUKOCYTE ESTERASE ,URINE 1+ (NEGATIVE); NITRITE,URINE NEGATIVE (NEGATIVE); PROTEIN,URINE NEGATIVE (NEGATIVE)
[2021-02-23 17:20] LABS: BACTERIA,URINE MODERATE /HPF
--- NOTE | 2021-02-23 17:25 | ED GU-Female ---
General Chief Complaint: - Urinary Stated Complaint: LT SIDE LOWER BACK PAIN,UTI SYMPTOMS Nursing Triage Note: Patient reports she began having symptoms of dysuria and urinary frequency last night, she reports left lower back/flank/abdominal pain since this morning. She reports a history of UTIs and kidney stones requiring lithotripsy. Nursing Sepsis Screen: No Definite Risk Source: patient Exam Limitations: no limitations History of Present Illness Date Seen by Provider: February 23, 2021 Time Seen by Provider: 17:08 Initial Comments 35-year-old female with past medical history significant for multiple kidney stones presents with sudden onset left back, flank and left lower quadrant pain 1 hour prior to arrival. No preceding illness, fever chills or vomiting. Normal appetite and activity today without any limitation or injury. History of lithotripsy as well as a ureteral stent as recently as 1 year ago for a 6mm st one in [facility] Allergies and Home Medications Allergies Coded Allergies: acetaminophen (Verified Allergy, Unknown, 05/20/20) oxycodone HCl (Verified Allergy, Unknown, 05/20/20) Home Medications Ascorbic Acid 500 Mg Capsule, 500 MG PO DAILY, (Reported) Hydrocodone/Acetaminophen 1 Each Tablet, 1 EACH PO Q4H Prescribed by: JAY SALINAS on 02/23/211851 Levothyroxine Sodium 88 Mcg Tablet, 88 MCG PO DAILY, (Reported) Multivitamin 1 Each Tablet, 1 EACH PO DAILY, (Reported) [place] 3 Polyunsat Fatty Acids 1,000 Mg Cap, 1,000 MG PO DAILY, (Reported) Tamsulosin HCl 0.4 Mg Cap, 0.4 MG PO DAILY Prescribed by: JAY SALINAS on 02/23/211850 Vitamin B Complex 1 Each Capsule, 1 EACH PO DAILY, (Reported) Vitamin E Acetate 200 Unit Capsule, 200 UNIT PO DAILY, (Reported) Patient Home Medication List Home Medication List Reviewed: Yes Review of Systems Review of Systems Constitutional: No chills, No fever, No malaise, No weakness EENTM: no symptoms reported Respiratory: no symptoms reported; No cough, No hemoptysis, No short of breath Cardiovascular: No chest pain, No edema, No syncope Gastrointestinal: LLQ, abdominal pain Genitourinary: see HPI, dysuria, flank pain, pain Musculoskeletal: see HPI, back pain Skin: no symptoms reported, lesions Past Fqcslqn-Ssvcrv-Ovwmvx Hx Past Med/Social Hx: Reviewed Nursing Past Med/Soc Hx Patient Social History Alcohol Use: Occasionally Uses Smoking Status: Current Everyday Smoker Type Used: Cigarettes 2nd Hand Smoke Exposure: No Recent Infectious Disease Expo: No Recent Hopitalizations: No Immunizations Up To Date Date of Influenza Vaccine: Jul 28, 2019 Seasonal Allergies Seasonal Allergies: No Past Medical History Surgeries: Yes Adenoidectomy, Tonsillectomy Respiratory: No Cardiac: No Neurological: Yes Neuropathy Sexually Transmitted Disease: No HIV/AIDS: No Genitourinary: Yes Kidney Stones Gastrointestinal: Yes Gastroesophageal Reflux, Chronic Diarrhea Musculoskeletal: No Endocrine: Yes (MICAH'S) Hypothyroidsim HEENT: No Loss of Vision: Denies Hearing Impairment: Denies Cancer: No Psychosocial: Yes (R/T THYROID ISSUES) Depression Integumentary: No Blood Disorders: Yes (HX ANEMIA) Adverse Reaction/Blood Tranf: No (N/A) Physical Exam Vital Signs Vital Signs - First Documented 02/23/21 17:02 Temp 35.9 Pulse 87 Resp 18 B/P (MAP) 150/93 (112) Pulse Ox 97 O2 Delivery Room Air Capillary Refill : Less Than 3 Seconds Height, Weight, BMI Height: 5'4.00" Weight: 190lbs. oz. [id number]; 33.00 BMI Method:Stated General Appearance: mild distress (uncomfortable 2 to pain) Cardiovascular: regular rate, rhythm, no edema, no JVD Respiratory: chest non-tender, lungs clear, normal breath sounds, no respiratory distress, no accessory muscle use Gastrointestinal: soft; No guarding, No rebound; tenderness (generalized TTP left CVA, flank and LLQ. No peritoneal sx); No mass, No hepatomegaly, No spleenomegaly Back: CVA tenderness (L); No muscle spasm Neurologic/Psychiatric: alert, oriented x 3 Skin: normal color, warm/dry Progress/Results/Core Measures Suspected Sepsis Recent Fever Within 48 Hours: No Infection Criteria Present: Suspected New Infection New/Unexplained Altered Menta: No Sepsis Screen: No Definite Risk SIRS Temperature: Pulse: 87 Respiratory Rate: 18 Laboratory Tests 02/23/21 17:05: White Blood Count 8.6 Blood Pressure 150 /93 Mean: 112 Laboratory Tests 02/23/21 17:05: Creatinine 0.78, Platelet Count 300, Total Bilirubin < 0.2 Results/Orders Lab Results Laboratory Tests Test 02/23/21 17:00 02/23/21 17:05 Range/Units Urine Color YELLOW Urine Clarity SLT CLOUDY Urine pH 8.0 5-9 Urine Specific [place] 1.015 L 1.016-1.022 Urine Protein NEGATIVE NEGATIVE Urine Glucose (UA) NEGATIVE NEGATIVE Urine Ketones NEGATIVE NEGATIVE Urine Nitrite NEGATIVE NEGATIVE Urine Bilirubin NEGATIVE NEGATIVE Urine Urobilinogen 0.2 < = 1.0 MG/DL Urine Leukocyte Esterase 1+ H NEGATIVE Urine RBC (Auto) TRACE H NEGATIVE Urine RBC NONE /HPF Urine WBC 2-5 /HPF Urine Squamous Epithelial Cells 5-10 /HPF Urine Crystals NONE /LPF Urine Bacteria MODERATE H /HPF Urine Casts NONE /LPF Urine Mucus NEGATIVE /LPF Urine Culture Indicated YES Urine Test NEGATIVE NEGATIVE White Blood Count 8.6 4.3-11.0 10^3/uL Red Blood Count 4.50 4.35-5.85 10^6/uL Hemoglobin 13.8 11.5-16.0 G/DL Hematocrit 42 35-52 % Mean Corpuscular Volume 94 80-99 FL Mean Corpuscular Hemoglobin 31 25-34 PG Mean Corpuscular Hemoglobin Concent 33 32-36 G/DL Red Cell Distribution Width 13.1 10.0-14.5 % Platelet Count 300 130-400 10^3/uL Mean Platelet Volume 10.1 7.4-10.4 FL Immature Granulocyte % (Auto) 0 % Neutrophils (%) (Auto) 75 42-75 % Lymphocytes (%) (Auto) 17 12-44 % Monocytes (%) (Auto) 7 0-12 % Eosinophils (%) (Auto) 1 0-10 % Basophils (%) (Auto) 1 0-10 % Neutrophils # (Auto) 6.4 1.8-7.8 X 10^3 Lymphocytes # (Auto) 1.5 1.0-4.0 X 10^3 Monocytes # (Auto) 0.6 0.0-1.0 X 10^3 Eosinophils # (Auto) 0.1 0.0-0.3 10^3/uL Basophils # (Auto) 0.0 0.0-0.1 10^3/uL Immature Granulocyte # (Auto) 0.0 0.0-0.1 10^3/uL Sodium Level 138 135-145 MMOL/L Potassium Level 3.7 3.6-5.0 MMOL/L Chloride Level 102 98-107 MMOL/L Carbon Dioxide Level 26 21-32 MMOL/L Anion Gap 10 5-14 MMOL/L Blood Urea Nitrogen 12 7-18 MG/DL Creatinine 0.78 0.60-1.30 MG/DL Estimat Glomerular Filtration Rate > 60 BUN/Creatinine Ratio 15 Glucose Level 101 70-105 MG/DL Calcium Level 9.6 8.5-10.1 MG/DL Corrected Calcium 8.5-10.1 MG/DL Total Bilirubin < 0.2 0.1-1.0 MG/DL Aspartate Amino Transf (AST/SGOT) 21 5-34 U/L Alanine Aminotransferase (ALT/SGPT) 32 0-55 U/L Alkaline Phosphatase 81 40-136 U/L Total Protein 7.7 6.4-8.2 GM/DL Albumin 4.6 H 3.2-4.5 GM/DL My Orders Orders - ROVENSTINE,JAY L DO Ua Culture If Indicated (02/23/21 17:01) Hcg,Qualitative Urine (02/23/21 17:01) Ed Iv/Invasive Line Start (02/23/21 17:17) Ketorolac Injection (Toradol Injection) (02/23/21 17:30) Ondansetron Injection (Zofran Injectio (02/23/21 17:30) Ns Iv 1000 Ml (Sodium Chloride 0.9%) (02/23/21 17:30) Comprehensive Metabolic Panel (02/23/21 17:17) Cbc With Automated Diff (02/23/21 17:17) Urine Culture (02/23/21 17:00) Ct Abdomen/Pelvis Wo (02/23/21 17:20) Fentanyl Inj (Sublimaze Injection) (02/23/21 18:00) Tamsulosin Capsule (Flomax Capsule) (02/23/21 18:21) Fentanyl Inj (Sublimaze Injection) (02/23/21 18:30) Medications Given in ED Current Medications Medications Dose Ordered Sig/Olga Route Start Time Stop Time Status Last Admin Dose Admin Fentanyl Citrate 50 mcg ONCE ONCE IVP 02/23/21 18:30 02/23/21 18:31 DC 02/23/21 18:29 50 MCG Fentanyl Citrate 75 mcg ONCE ONCE IVP 02/23/21 18:00 02/23/21 18:01 DC 02/23/21 17:53 75 MCG Ketorolac Tromethamine 30 mg ONCE ONCE IVP 02/23/21 17:30 02/23/21 17:31 DC 02/23/21 17:23 30 MG Ondansetron HCl 4 mg ONCE ONCE IVP 02/23/21 17:30 02/23/21 17:31 DC 02/23/21 17:23 4 MG Vital Signs/I&O 02/23/21 17:02 Temp 35.9 Pulse 87 Resp 18 B/P (MAP) 150/93 (112) Pulse Ox 97 O2 Delivery Room Air Capillary Refill : Less Than 3 Seconds Blood Pressure Mean: 112 Progress Note : Progress Note 1744- no relief w toradol IV, still writhing. Discussed CT findings of Left UVJ stone @ 4mm and likelihood to pass it. Will give Fentanyl and watch 1848-feeling a lot better after second dose of fentanyl and given Flomax. Still having pain, but no longer severe. Discussed sending her home to strain her urine with urology follow-up and pain medication. Patient agrees and understands with no further questions, will likely see her urologist in [facility]. Rx's sent electronically (hydrocodone and flomax) to [facility] prior to pt DC from ER. Found out [facility] was closed so sent same Rx to [facility]. Left a message to cancel Rx @ [facility]. Departure Impression Primary Impression: Ureterolithiasis Disposition: HOME, SELF-CARE Condition: Improved Departure-Patient Inst. Decision time for Depature: 18:50 Referrals: [facility] [place] Primary Care Physician JOY AGUIRRE APRN (Family) Primary Care Physician SOLEDAD MENDOZA MD Patient Instructions: Kidney Stone, Adult ED, Kidney Stone Diet Add. Discharge Instructions: Call your previous Urologist or Dr Mendoza to arrange follow up tomorrow if your stone has not passed. All discharge instructions reviewed with patient and/or family. Voiced understanding. Scripts Hydrocodone/Acetaminophen (Hydrocodone-Acetamin 5-325 mg) 1 Each Tablet 1 EACH PO Q4H for Abdominal Pain, #10 TAB Prov: JAY SALINAS DO 02/23/21 Hydrocodone/Acetaminophen (Hydrocodone-Acetamin 5-325 mg) 1 Each Tablet 1 EACH PO Q4H for Abdominal Pain, #20 TAB Prov: JAY SALINAS DO 02/23/21 Tamsulosin HCl (Flomax) 0.4 Mg Cap 0.4 MG PO DAILY, #5 CAP Prov: JAY SALINAS DO 02/23/21 JAY SALINAS DO February 23, 2021 17:25
[2021-02-23 17:26] LABS: BASOPHILS % (AUTO) 1 % (0-10); EOSINOPHILS % (AUTO) 1 % (0-10); HEMATOCRIT 42 % (35-52); HEMOGLOBIN 13.8 G/DL (11.5-16.0); LYMPHOCYTES % (AUTO) 17 % (12-44); MEAN CORPUSCULAR HEMOGLOBIN 31 PG (25-34); MEAN CORPUSCULAR HGB CONC 33 G/DL (32-36); MEAN CORPUSCULAR VOLUME 94 FL (80-99); MEAN PLATELET VOLUME 10.1 FL (7.4-10.4); MONOCYTES % (AUTO) 7 % (0-12); NEUTROPHILS % (AUTO) 75 % (42-75); PLATELET COUNT 300 10^3/uL (130-400); WHITE BLOOD COUNT 8.6 10^3/uL (4.3-11.0)
[2021-02-23 17:27] LABS: EOSINOPHILS # (AUTO) 0.1 10^3/uL (0.0-0.3); LYMPHOCYTES # (AUTO) 1.5 X 10^3 (1.0-4.0); MONOCYTES # (AUTO) 0.6 X 10^3 (0.0-1.0); NEUTROPHILS # (AUTO) 6.4 X 10^3 (1.8-7.8)
[2021-02-23] MEDS ORDERED: NS IV 1000 ML 1,000 ML IV SCH (17:30)
[2021-02-23] MEDS ORDERED: KETOROLAC 30 MG/ML VIAL IVP ONE (17:30)
[2021-02-23] MEDS ORDERED: ONDANSETRON 4 MG/2 ML (SDV) Z0FRAN IVP ONE (17:30)
[2021-02-23 17:40] LABS: ALANINE AMINOTRANSFERASE 32 U/L (0-55); ALBUMIN 4.6 GM/DL (3.2-4.5); ALKALINE PHOSPHATASE 81 U/L (40-136); BILIRUBIN,TOTAL < 0.2 MG/DL (0.1-1.0); BUN/CREATININE RATIO 15; CALCIUM 9.6 MG/DL (8.5-10.1); CARBON DIOXIDE 26 MMOL/L (21-32); CHLORIDE 102 MMOL/L (98-107); CREATININE SERUM 0.78 MG/DL (0.60-1.30); GFR ESTIMATED > 60; GLUCOSE 101 MG/DL (70-105); POTASSIUM 3.7 MMOL/L (3.6-5.0); SODIUM 138 MMOL/L (135-145); TOTAL PROTEIN 7.7 GM/DL (6.4-8.2)
--- NOTE | 2021-02-23 17:43 | Diagnostic Imaging Report ---
PROCEDURE: CT abdomen and pelvis without contrast. TECHNIQUE: Multiple contiguous axial images were obtained through the abdomen and pelvis without the use of intravenous contrast. Auto Exposure Controls were utilized during the CT exam to meet ALARA standards for radiation dose reduction. INDICATION: Left-sided abdominal pain. History of prior renal stones. COMPARISON: 05/17/2020. FINDINGS: The heart is unremarkable. The lung bases are clear. A calculus is seen in the distal left ureter at the left UVJ measuring 0.4 cm with associated mild to moderate left-sided hydronephrosis. A nonobstructing calculus is seen in the left kidney measuring 0.2 cm. No hydronephrosis is seen on the right. The urinary bladder is decompressed. The gallbladder is filled with gallstones. No CT evidence of acute cholecystitis. The liver, spleen, pancreas and adrenal glands have a normal appearance. There is no pathologically enlarged mesenteric or retroperitoneal adenopathy. The bowel loops are nondilated. The appendix is visualized in the right lower quadrant and has a normal appearance. There is no free fluid or free air. No acute osseous abnormality. An IUD is in place. There is no free air, loculated collection or adenopathy in the pelvis. IMPRESSION: 1. Obstructing calculus in the left UVJ measuring 4 mm with mild to moderate left-sided hydronephrosis. 2. Cholelithiasis without CT evidence of acute cholecystitis. Recommend correlation with patient history, symptoms and laboratory values. Dictated by: Dictated on workstation # [id number]
[2021-02-23] MEDS ORDERED: fentaNYL INJ 100 MCG/2 ML AMP IVP ONE ×2 (18:00→18:30)
[2021-02-23] MEDS ORDERED: TAMSULOSIN 0.4 MG (FLOMAX) CAP PO STA (18:21)
[2021-02-23] MEDS ORDERED: ACHD5005 PO ×2 (18:51→19:10)
[2021-02-23] MEDS ORDERED: TMSL.4C PO (18:51)
[2021-02-23 19:03] VITALS: BP 150/93
[2021-02-27] MEDS ORDERED: CIPR-225 PO (17:11)
== END 2021-02-23 19:05 | disposition home or self-care (01) ==
LOC: EDUNIT# 16:59 → ER FS 17:01
DX: N13.2 Hydronephrosis with renal and ureteral calculous obstruction (principal); E03.9 Hypothyroidism, unspecified; F17.210 Nicotine dependence, cigarettes, uncomplicated; Z79.890 Hormone replacement therapy; Z88.6 Allergy status to analgesic agent; Z88.5 Allergy status to narcotic agent; Z79.899 Other long term (current) drug therapy
CPT/HCPCS: 36415; 74176; 80053; 81000; 84703; 85025; 87077; 87088

== ENCOUNTER 2021-03-02 17:06 | Emergency (ER) | payer MEDICAID ==
[~2021-03-02 17:06] MED LIST changes: +ACHD5005 PO; +CIPR-225 PO; +TMSL.4C PO
[2021-03-02] MEDS ORDERED: ONDANSETRON 4 MG (ZOFRAN) ORAL DISSOLVE TAB PO STA (17:25)
[2021-03-02 17:27] LABS: BILIRUBIN,URINE NEGATIVE (NEGATIVE); CLARITY,URINE CLEAR; COLOR,URINE YELLOW; GLUCOSE, URINE (UA) NEGATIVE (NEGATIVE); KETONES,URINE NEGATIVE (NEGATIVE); LEUKOCYTE ESTERASE ,URINE NEGATIVE (NEGATIVE); NITRITE,URINE NEGATIVE (NEGATIVE); PH,URINE 6.5 (5-9); PROTEIN,URINE NEGATIVE (NEGATIVE)
[2021-03-02 17:30] LABS: BACTERIA,URINE NEGATIVE /HPF; WBC,URINE 0-2 /HPF
[2021-03-02] MEDS ORDERED: KETOROLAC 60 MG/2 ML VIAL IM ONE (17:30)
--- NOTE | 2021-03-02 17:44 | Diagnostic Imaging Report ---
PROCEDURE: CT abdomen and pelvis without contrast. TECHNIQUE: Multiple contiguous axial images were obtained through the abdomen and pelvis without the use of intravenous contrast. Auto Exposure Controls were utilized during the CT exam to meet ALARA standards for radiation dose reduction. INDICATION: Left flank pain x1 week. COMPARISON: 02/23/2021 FINDINGS: Included portions of the lung bases are clear. CT ABDOMEN: Punctate bilateral nonobstructive calculi are identified bilaterally. Ureters are difficult to follow in their entirety, but no calculi are seen along the expected course of either ureter. Additionally, there is no hydronephrosis or other evidence of obstruction. No renal masses are seen on this noncontrast exam. There is cholelithiasis, but no gallbladder wall thickening or pericholecystic free fluid. The liver, spleen, pancreas, adrenal glands, and liver have an unremarkable noncontrast CT appearance. Small bowel loops are nondistended. Normal appendix is identified. Moderate air and stool seen scattered throughout the colon. No loculated fluid collection, free fluid or free air seen within the abdomen. No abnormal mesenteric or retroperitoneal adenopathy is identified. Osseous structures show no acute abnormalities. CT PELVIS: Urinary bladder is opacified and minimally distended. No calculi are seen within urinary bladder. Indwelling intrauterine contraceptive device is identified. There is no loculated fluid collection, free fluid or free air within the pelvis. No abnormal lymph nodes are seen. Osseous structures show no acute abnormalities IMPRESSION: 1. Punctate bilateral nonobstructive renal calculi. 2. No ureteral calculi, hydronephrosis, or other evidence of obstruction. 3. Cholelithiasis, but no CT evidence of acute cholecystitis. 4. Moderate colonic air and stool. Please correlate for constipation. Dictated by: Dictated on workstation # [id number]
--- NOTE | 2021-03-02 17:57 | ED GU-Female ---
General Chief Complaint: - Urinary Stated Complaint: LT LOWER/SIDE PAIN Nursing Triage Note: Patient reports having continued dull posterior Left flank pain from kidney stone last week and stabbing pain in perineum from "UTI sx". Nursing Sepsis Screen: Possible Severe Sepsis Risk Source: patient Exam Limitations: no limitations History of Present Illness Date Seen by Provider: March 02, 2021 Time Seen by Provider: 16:30 Initial Comments Patient is a 34-year-old female with history of kidney stones recent cystoscopy by her urologist who presents with left flank pain and dysuria. Patient was evaluated in this emergency department 5 days ago for the same was diagnosed with urinary tract infection kidney stone. She was placed on antibiotics and is currently taking Cipro. She currently denies fever chills, nausea vomiting or sweats. Left leg pain is described as dull and aching it is nonradiating. It is rated moderate to severe. It is not worse with position change and movement is not relieved by rest. Patient also reports dysuria since her bladder procedure. No other acute symptoms or complaints. Patient has an appointment with her urologist tomorrow. Timing/Duration: other Severity/Quality: other Location: other Radiation: other Activities at Onset: other Sexual [place] History: other Modifying Factors: Improves With Other Associated Symptoms: other Allergies and Home Medications Allergies Coded Allergies: acetaminophen (Verified Allergy, Unknown, 05/20/20) oxycodone HCl (Verified Allergy, Unknown, 05/20/20) Home Medications Ascorbic Acid 500 Mg Capsule, 500 MG PO DAILY, (Reported) Ciprofloxacin HCl 500 Mg Tablet, 500 MG PO BID, (Reported) Hydrocodone/Acetaminophen 1 Each Tablet, 1 EACH PO Q4H Prescribed by: JAY SALINAS on 02/23/211851 Hydrocodone/Acetaminophen 1 Each Tablet, 1 EACH PO Q4H Prescribed by: JAY SALINAS on 02/23/211910 Levothyroxine Sodium 88 Mcg Tablet, 88 MCG PO DAILY, (Reported) Multivitamin 1 Each Tablet, 1 EACH PO DAILY, (Reported) [place] 3 Polyunsat Fatty Acids 1,000 Mg Cap, 1,000 MG PO DAILY, (Reported) Tamsulosin HCl 0.4 Mg Cap, 0.4 MG PO DAILY Prescribed by: JAY SALINAS on 02/23/211850 Vitamin B Complex 1 Each Capsule, 1 EACH PO DAILY, (Reported) Vitamin E Acetate 200 Unit Capsule, 200 UNIT PO DAILY, (Reported) Patient Home Medication List Home Medication List Reviewed: Yes Review of Systems Review of Systems Constitutional: see HPI EENTM: see HPI Respiratory: see HPI Cardiovascular: see HPI Gastrointestinal: see HPI Musculoskeletal: see HPI Skin: see HPI Psychiatric/Neurological: See HPI Endocrine: See HPI Hematologic/Lymphatic: See HPI All Other Systemes Reviewed Negative Unless Noted: Yes Past Vgnvywk-Dzdkxj-Dnnwld Hx Past Med/Social Hx: Reviewed Nursing Past Med/Soc Hx Patient Social History Alcohol Use: Denies Use Smoking Status: Current Everyday Smoker Type Used: Cigarettes 2nd Hand Smoke Exposure: No Recent Infectious Disease Expo: No Recent Hopitalizations: No Immunizations Up To Date Date of Influenza Vaccine: Jul 28, 2019 Seasonal Allergies Seasonal Allergies: No Past Medical History Surgeries: Yes Adenoidectomy, Tonsillectomy Respiratory: No Cardiac: No Neurological: Yes Neuropathy : No Sexually Transmitted Disease: No HIV/AIDS: No Genitourinary: Yes Kidney Stones Gastrointestinal: Yes Gastroesophageal Reflux, Chronic Diarrhea Musculoskeletal: No Endocrine: Yes (MICAH'S) Hypothyroidsim HEENT: No Loss of Vision: Denies Hearing Impairment: Denies Cancer: No Psychosocial: Yes (R/T THYROID ISSUES) Depression Integumentary: No Blood Disorders: Yes (HX ANEMIA) Adverse Reaction/Blood Tranf: No (N/A) Physical Exam Vital Signs Vital Signs - First Documented 03/02/21 17:09 Temp 36.8 Pulse 92 Resp 18 B/P (MAP) 136/95 (109) O2 Delivery Room Air Capillary Refill : Less Than 3 Seconds Height, Weight, BMI Height: 5'4.00" Weight: 190lbs. oz. 86.582756ba; 33.00 BMI Method:Stated General Appearance: moderate distress HEENT: PERRL/EOMI, normal ENT inspection Neck: full range of motion, normal inspection Cardiovascular: regular rate, rhythm Respiratory: lungs clear, normal breath sounds Gastrointestinal: non tender, soft Back: no CVA tenderness, no vertebral tenderness Neurologic/Psychiatric: no motor/sensory deficits, alert, normal mood/affect Focused Exam Sepsis Stage: Ruled Out Progress/Results/Core Measures Suspected Sepsis Recent Fever Within 48 Hours: Yes Infection Criteria Present: Documented Infection New/Unexplained Altered Menta: No Sepsis Screen: Possible Severe Sepsis Risk SIRS Temperature: Pulse: 92 Respiratory Rate: 18 Blood Pressure 136 /95 Mean: 109 Results/Orders Lab Results Laboratory Tests Test 03/02/21 17:08 Range/Units Urine Color YELLOW Urine Clarity CLEAR Urine pH 6.5 5-9 Urine Specific [place] 1.015 L 1.016-1.022 Urine Protein NEGATIVE NEGATIVE Urine Glucose (UA) NEGATIVE NEGATIVE Urine Ketones NEGATIVE NEGATIVE Urine Nitrite NEGATIVE NEGATIVE Urine Bilirubin NEGATIVE NEGATIVE Urine Urobilinogen 0.2 < = 1.0 MG/DL Urine Leukocyte Esterase NEGATIVE NEGATIVE Urine RBC (Auto) NEGATIVE NEGATIVE Urine RBC NONE /HPF Urine WBC 0-2 /HPF Urine Squamous Epithelial Cells 5-10 /HPF Urine Crystals NONE /LPF Urine Bacteria NEGATIVE /HPF Urine Casts NONE /LPF Urine Mucus NEGATIVE /LPF Urine Culture Indicated NO My Orders Orders - AMANDA CALLOWAY DO Ct Abdomen/Pelvis Wo (03/02/21 17:17) Urine Bedside (03/02/21 17:17) Urinalysis (03/02/21 17:18) Ondansetron Oral Dissolve Tab (Zofran (03/02/21 17:25) Ketorolac Injection (Toradol Injection) (03/02/21 17:30) Medications Given in ED Current Medications Medications Dose Ordered Sig/Olga Route Start Time Stop Time Status Last Admin Dose Admin Ketorolac Tromethamine 60 mg ONCE ONCE IM 03/02/21 17:30 03/02/21 17:31 DC 03/02/21 17:41 60 MG Vital Signs/I&O 03/02/21 03/02/21 17:09 17:41 Temp 36.8 36.8 Pulse 92 Resp 18 B/P (MAP) 136/95 (109) O2 Delivery Room Air Capillary Refill : Less Than 3 Seconds Blood Pressure Mean: 109 Departure Communication (Admissions) CT abdomen pelvis: No acute disease per radiology report. Urine and lab reviewed. Suspect symptoms/flank pain related to constipation and recent narcotic use. Recommend supportive care with urologist follow-up tomorrow as scheduled. Impression Primary Impression: Acute left flank pain Additional Impression: Acute constipation Disposition: 01 HOME, SELF-CARE Condition: Stable Departure-Patient Inst. Decision time for Depature: 18:05 Referrals: [facility] ([facility]P) Primary Care Physician JOY AGUIRRE APRN (Family) Primary Care Physician Patient Instructions: Constipation, Adult ED Add. Discharge Instructions: You were evaluated in the emergency for flank pain and dysuria. CT scan does not show active stone disease. Constipation is noted to be present. Please increase daily fluid and fiber intake. Drink 1-2 bottles of mag citrate daily for the next 2 days until symptoms improve. Follow-up with your urologist tomorrow as scheduled. Return to the ED if new or worsening symptoms. All discharge instructions reviewed with patient and/or family. Voiced understanding. AMANDA CALLOWAY DO March 02, 2021 17:57
[2021-03-02 18:10] VITALS: BP 136/95
== END 2021-03-02 18:10 | disposition home or self-care (01) ==
LOC: EDUNIT# 17:06 → ER FS 17:07
DX: R10.9 Unspecified abdominal pain (principal); K59.00 Constipation, unspecified; E03.9 Hypothyroidism, unspecified; F17.210 Nicotine dependence, cigarettes, uncomplicated; Z88.6 Allergy status to analgesic agent; Z88.5 Allergy status to narcotic agent; Z79.890 Hormone replacement therapy
CPT/HCPCS: 74176; 81000; 84703